=== PATIENT | female | born 1935 | race Caucasian/White ===

== ENCOUNTER 2017-03-26 06:37 | Day surgery (SDC) | payer MEDICARE, OTHER, SELFPAY | END 2017-03-26 07:37 | disposition short-term general hospital (02) | PROVIDERS: PCP Family Medicine; Visit Provider Orthopaedic Surgery ==

== ENCOUNTER 2017-08-13 06:51 | Inpatient (IN) | payer MEDICARE, OTHER, SELFPAY ==
[2017-07-16 10:00] VITALS: BMI 27.4
[2017-08-13] VITALS (16 sets, daily range): BP systolic 122–188; BP diastolic 65–98; PULSE 60–68; RESP 8–18; TEMP 35.7–36.9; O2SAT 93–100; BMI 27.4
--- NOTE | 2017-08-13 | DI.RAD.S_ITS ---
PROCEDURE: XR KNEE LT 1TO2V INDICATIONS: POST OPERATIVE RIGHT KNEE TECHNIQUE: 2 view(s) of the knee acquired. COMPARISON: [facility] CLEMENTE Dunaway, XR KNEE ARTHRITIC SERIES RT, 12/19/2016, 10:54. FINDINGS: Bones: Patient is status post knee joint arthroplasty. Hardware components are in expected positions. Visualized bony structures are intact. Soft tissues: Overlying postoperative changes are noted. IMPRESSION: Acute postoperative changes of total right knee arthroplasty. Dictated by: Bert Raymundo M.D. on 08/13/2017 at 10:41 Approved by: Bert Raymundo M.D. on 08/13/2017 at 10:42
[2017-08-13] MEDS: LACTATED RINGERS 1,000 ML 42 ML IV (07:15)
[2017-08-13] MEDS: VANCOMYCIN 1,000 MG/200 ML FROZ.PIGGY 200 MG IV (07:15)
[2017-08-13] MEDS: ACETAMINOPHEN 325 MG TABLET 975 MG PO (07:31)
[2017-08-13] MEDS: CELECOXIB 200 MG CAPSULE PO (07:31)
--- NOTE | 2017-08-13 07:39 | PM.PREOP ---
Pre-operative Note Interval Note Pre-op Check: History & Physical Reviewed by Physician
--- NOTE | 2017-08-13 07:43 | P.OP_ITS ---
Operative Date/Time/Diagnoses - Date of procedure: 08/13/17 Time of procedure: 07:41 Pre-op diagnosis: Right knee OA Post-op diagnosis: same Procedure & Clinicians Procedure: Right total knee arthroplasty Same procedure as scheduled: Yes Indications: The patient has had progressively worsening right knee pain with radiographic changes consistent with arthritis. Non-operative management has failed and the patient has requested total knee replacement. The risks, benefits and alternatives to surgery were discussed with the patient prior to proceeding. Risks discussed included, but were not limited to, failure to relieve pain, stiffness, infection, nerve damage, deep venous thrombosis, pulmonary embolism, stroke, coma, heart attack, permanent paralysis and , as well as the potential need for eventual revision of the prosthetic. Surgeon: Francie Ramirez Direct Marketing Analyst: Clifford Villarreal Anesthesia Type: Spinal Operative Notes Findings: Severe right knee OA Closure Type: primary Specimen(s): none sent Implants & Drains: Ramirez and Nephew Enrike BCS2 size 4 femur, size 3 tibia, poly 10mmm, 32 by 7-1/2 mm patella Applied: drain(s) Estimated Blood Loss (mL): 200 Blood products transfused: none Tourniquet time (min): 60 Procedure in detail: THE PATIENT WAS SEEN IN THE PRE-OPERATIVE AREA, WHERE THE PATIENT IDENTIFIED THE RIGHT KNEE THE OPERATIVE SITE AND THIS WAS MARKED WITH MY INITIALS. THE PATIENT RECEIVED PRE-OPERATIVE ANTIBIOTICS, AND WAS TAKEN TO THE OPERATING ROOM AND PLACED ON THE OPERATIVE TABLE IN THE SUPINE POSITION. AFTER SATISFACTORY ANESTHESIA, A SITE PROJECT MANAGER OUT WAS PERFORMED. THE RIGHT LEG WAS ENCIRCLED WITH A TOURNIQUET ABOUT THE PROXIMAL THIGH, AND THE LEG WAS PREPARED FROM THE TOES TO THE TOURNIQUET WITH CHLOROPREP IN THE USUAL FASHION AND DRAPED THROUGH STERILE DRAPES. THE LEG WAS ELEVATED AND EXSANGUINATED WITH [employer] BANDAGE AND THE TOURNIQUET INFLATED TO [250] MM[employer] PRESSURE. THE KNEE WAS APPROACHED THROUGH AN APPROXIMATELY 18 CM INCISION CENTERED OVER THE PATELLA AND CARRIED INTO THE KNEE THROUGH A MEDIAL PARAPATELLAR ARTHROTOMY. A PORTION OF THE MEDIAL AND LATERAL MENISCUS WAS RESECTED. SOFT TISSUE WAS CAREFULLY MOBILIZED AROUND THE PATELLA THE PATELLA WAS MEASURED WITH A CALIPER. BONE WAS RESECTED FROM THE PATELLA AND THE PATELLAR HEIGHT WAS RECONSTITUTED WITH UP AN APPROPRIATE SIZED PATELLAR COMPONENT. FOR A COVER WAS THEN PLACED ON THE PATELLA. A SMALL AMOUNT OF ADDITIONAL MEDIAL AND LATERAL MENISCUS WAS RESECTED. THE VISIONARY GUIDE FIT WELL TO THE DISTAL FEMUR. IT LOOKED LIKE AN APPROPRIATE DISTAL FEMORAL CUT AND THE CUT WAS MADE WITHOUT DIFFICULTY. THE ROTATION WAS ASSESSED AND THE APPROPRIATE SIZE FEMORAL GUIDE WAS PLACED ON THE DISTAL FEMUR AND FINISHING CUTS WERE MADE. THERE IS NO EVIDENCE OF NOTCHING. THE ANTERIOR, POSTERIOR AND CHAMFER CUTS WERE THEN MADE. THE POSTERIOR OSTEOPHYTES AND SOFT TISSUES WERE THEN REMOVED. THE POSTERIOR CAPSULE WAS INJECTED WITH PART OF A MIXTURE OF 60 ML 0.25% MARCAINE MIXED WITH 20 ML EXPAREL FOR POST OPERATIVE PAIN CONTROL. THE REMAINDER OF THIS MIXTURE WAS INJECTED INTO THE CAPSULE AND SUBCUTANEOUS TISSUES DURING CEMENT CURING. THE TIBIA WAS PREPARED AND THE VISIONAIRE GUIDE FIT WELL TO THE DISTAL TIBIA. THE ROTATION WAS ASSESSED. THE PATIENT WAS PLACED IN EXTENSION RESIDUAL MEDIAL AND LATERAL MENISCUS WELL ANY RESIDUAL BONE WAS CAREFULLY RESECTED. NO ADDITIONAL TIBIA WAS RESECTED. HEMOSTASIS WAS ACHIEVED ESPECIALLY POSTERIORLY. ADDITIONAL LOCAL WAS INJECTED INTO THE POSTERIOR CAPSULE. THE EXTENSION GAP WAS ASSESSED AND ADDITIONAL RELEASES FOR GAP BALANCING WERE PERFORMED NECESSARY. IT WAS CHECKED WITH THE GAP FORGE HAND. THE FEMORAL COMPONENT WAS TRIAL WAS PLACED AND THE NOTCH WAS FINISHED. TRIAL TIBIAL AND FEMORAL COMPONENTS WERE THEN PLACED AND THE KNEE PLACED THROUGH A RANGE OF MOTION. RANGE OF MOTION WAS [ 0-130], WITH GOOD STABILITY THROUGHOUT THE RANGE. THE TRIALS WERE THEN REMOVED, AND THE TIBIA WAS FINISHED. THE BONE WAS PREPARED WITH PULSATILE LAVAGE, AND DRIED WITH A SPONGE. CEMENT WAS APPLIED AND THE FINAL PROSTHETICS PLACED. EXCESS CEMENT WAS REMOVED DURING AND AFTER CEMENT CURING. A BRIEF BETADINE SOAK WAS PERFORMED. AFTER CONFIRMING THERE WAS NO EXTRUDED CEMENT POSTERIORLY, THE FINAL TIBIAL INSERT WAS PLACED. THE KNEE WAS COPIOUSLY IRRIGATED AND THE TOURNIQUET DEFLATED. HEMOSTASIS WAS OBTAINED WITH THE BOVIE. A DRAIN WAS PLACED AND BROUGHT OUT SUPEROLATERALLY. THE CAPSULE WAS CLOSED WITH INTERRUPTED # 1 BLACK BRAIDED SUTURE. THE SUBCUTANEOUS LAYER WAS CLOSED WITH BARBED SUTURES, AND THE SKIN WITH A RUNNING 3-0 V-LOCK SUTURE AND SURGICAL GLUE. AN AQUACEL AG DRESSING WAS APPLIED AND THE PATIENT WAS TAKEN TO RECOVERY HAVING TOLERATED THE PROCEDURE WELL. Complications: none Condition: stable Disposition: Acute Care Plan for aftercare: The patient will be maintained on a standard total knee replacement protocol with weight bearing as tolerated. The patient will receive aspirin and sequential compression devices for DVT prophylaxis. The patient will be discharged home when safe for the home environment.
[2017-08-13] MEDS: CEFAZOLIN 2 GM/100 ML FROZ.PIGGY IV ×3 (08:10→23:53)
--- NOTE | 2017-08-13 08:58 | SUR.OPER ---
Supine on padded OR bed. Pillow under head, arms secured on padded armboards <90 degree abduction. Safety belt across torso. Non-operative leg secured with tape over blanket over lower leg. Operative leg secured in [employer] positioner. Foam padded brace at thigh of operative leg.
[2017-08-13] MEDS: BUPIVACAINE 0.25% W/ EPI 50 ML VIAL INJ (09:05)
[2017-08-13] MEDS: BUPIVACAINE LIPOSOME 266 MG/20 ML VIAL SUBCUT (09:05)
[2017-08-13] MEDS: POVIDONE-IODINE 15 ML, SODIUM CHLORIDE 0.9% 250 ML TOP (09:10)
--- NOTE | 2017-08-13 09:27 | SUR.OPER ---
Dressing: aquacel and joy bandage right knee
[2017-08-13] MEDS: HYDROMORPHONE 2 MG INJ 0.5 MG IV ×2 (10:20→10:26)
--- NOTE | 2017-08-13 11:19 | PC.NURSE ---
Pt was ghazala to the AC floor at approx. 1100. She is A & O x 3. Dressing to right knee is CDI and ice pack has been applied. She rates her pain s 4/10 which is tollerable for her. She has been oriented to the room. Call ligtht is within reach and pt has agreed to use it as needed.
[2017-08-13] MEDS: LACTATED RINGERS 1,000 ML 125 ML IV ×2 (11:30→19:42)
--- NOTE | 2017-08-13 13:47 | PC.NURSE ---
Pt has been up OOB with nursing staff and use of FWW, transfered to bedside chair at 1345.
[2017-08-13] MEDS: ACETAMINOPHEN 325 MG TABLET 650 MG PO ×3 (14:29→23:52)
--- NOTE | 2017-08-13 15:20 | PT.IIE ---
Current Diagnoses Unilateral primary osteoarthritis, right knee (08/13/17) Surgery Performed Operation Date: 08/13/17 07:45 Actual Procedures p Total Knee Arthroplasty(Right) - Francie Ramirez MD Surgical History (Last Updated 07/16/17 @ 10:29 by Zoie Preciado, RN) History of arthroplasty of left knee (Acute) Hx of hernia repair (Acute) Hx of parathyroidectomy (Acute) Hx of tonsillectomy (Acute) Status post LASIK surgery of both eyes (Acute) Status post bilateral cataract extraction (Acute) Medical History (Last Updated 07/31/17 @ 09:41 by Zoie Preciado, RN) Anemia (Acute) Chronic kidney disease (Acute) Glaucoma (Acute) HTN (hypertension) (Acute) History of hysterectomy (Acute) Hyperlipidemia (Acute) Hyperuricemia (Acute) Nocturia (Acute) Pacemaker (Acute) Paroxysmal A-fib (Acute) Physical Therapy Inpatient Evaluation/Re-Eval M1 PT/OT-IP Prior Functional Status Start: 08/13/17 16:52 Freq: NEEDED Status: Active Protocol: Document 08/13/17 16:52 AB (Rec: 08/13/17 16:59 AB [id number]) Medical Review Prior Functional Status Medical History Reviewed Yes Mobility and Gait pt stated that she is independent with all mobilities and ambulation without AD Prior Functional Level (Other details) 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 M2 PT-IP Current Condition Start: 08/13/17 16:52 Freq: NEEDED Status: Active Protocol: Document 08/13/17 16:52 AB (Rec: 08/13/17 16:59 AB [id number]) Physical Therapy Current Condition Current Condition Evaluation Date 08/13/17 Treatment Diagnosis s/p R TKA Onset Date 08/13/17 Weight Bearing Status Weight Bearing Status Weight Bear as Tolerated M3 PT-IP Subjective Start: 08/13/17 16:52 Freq: NEEDED Status: Active Protocol: Document 08/13/17 16:52 AB (Rec: 08/13/17 16:59 AB [id number]) Subjective Physical Therapy Visit Type Type Initial Evaluation Visit Start Time 15:20 Visit Stop Time 15:46 Total Visit Minutes 26 Number of CRITICAL CARE CNS Visits 0 Physical Therapy Visit Comments Patient Comments pt agreeable to do therapy Therapy Pain Assessment Pain When Pain Assessed During Mobility Pain Present Pain Present Pain Reported Location Right Knee Intensity 4 Scale Used Numeric (1 - 10) Pain Management Techniques Apply Cold Re-positioning M4 PT-IP Mobility and Gait Start: 08/13/17 16:52 Freq: NEEDED Status: Active Protocol: Document 08/13/17 16:52 AB (Rec: 08/13/17 16:59 AB [id number]) PT-Bed Mobility Assessment Supine to Sit Supine to Sit Standby Assistance Sit to Supine Sit to Supine Standby Assistance PT-Transfer Assessment Sit to and From Stand Sit to and from Stand Minimal Assistance Equipment Transfer Assistive Device Bed Rail Front Wheeled Walker Transfers Transfer Destination Bedside Commode Transfer Ability Level of Assist Minimal Assistance Gait Assessment Gait Gait Assistance Required: Contact Guard Assist Minimum Assistance Distance (Feet) (feet) 30 Able to Maintain Weight Bearing Status Yes During Gait Assistive Devices Assistive Device Gait Belt Front Wheeled Walker Orthotic/Prosthetic Devices or Brace: No Gait Deviations General Gait Pattern Antalgic Decreased Stride Length Decreased Feet Clearance Factors Limiting Gait Function Factors Limiting Gait Function Decreased Activity Tolerance Decreased Strength Limited Range of Motion Pain Poor Balance Poor Safety Awareness PT-Balance Assessment Sitting Balance and Reactions Static Sitting Balance Ability Good Dynamic Sitting Balance Ability Good Standing Balance and Reactions Static Standing Balance Ability Fair Dynamic Standing Balance Ability Fair Device Used FWW M5 PT-IP Objective Assessments Start: 08/13/17 16:52 Freq: NEEDED Status: Active Protocol: Document 08/13/17 16:52 AB (Rec: 08/13/17 16:59 AB [id number]) Orientation Orientation/Cognition Level of Alertness Alert Orientation Name Age Birthday Year Place Situation Gross Range of Motion Lower Extremity ROM Assessment Right Impaired Strength Lower Extremity Strength Assessment Right Impaired Hip 4-/5 Knee 4-/5 M6 PT-IP Treatment Start: 08/13/17 16:52 Freq: NEEDED Status: Active Protocol: Document 08/13/17 16:52 AB (Rec: 08/13/17 16:59 AB [id number]) Physical Therapy Treatment Education Education Provided Precautions Weight Bearing Status Post-Op Packet Safety M7 PT-IP Assessment and Plan Start: 08/13/17 16:52 Freq: NEEDED Status: Active Protocol: Document 08/13/17 16:52 AB (Rec: 08/13/17 16:59 AB [id number]) PT Summary Assessment and Plan Potential Rehabilitation Potential Fair Status of Condition at Evaluation Evolving Summary Impairments Pain ROM Strength Balance Bed Mobility Transfers Gait Activity Tolerance Assessment Summary pt requiring one person assist with mobility. pt has spouse to assist her at home. caregiver traiing and stair training will be conducted prior to d/c. Goals Bed Mobility Goal Independent Transfer Goal Independent Gait Goal Independent Gait Distance 100 Other Goals up/down 3 steps with bilateral rails SBA Days to Meet Goals 3 Frequency of Treatment Frequency Of Treatment Twice a Day Treatment Plan Physical Therapy Treatment Plan Bed Mobility Training Transfer Training Gait Training Therapeutic Exercise Balance Retraining Post Op Education Discharge Planning Hot or Cold Pack Neuromuscular Re-ed Coordination Retraining Manual Therapy Recommendations To Nursing Amount of Assist Needed 1 Person Assist Discharge Recommendations PT Discharge Recommendations Home with Assistance Outpatient PT Provider Visit Care Team Role Provider Type Rojelio Adames MD Primary Care Provider Non-Staff Specialty: Medical Francie Ramirez MD Admit Provider Physician Attending Provider Specialty: Orthopedic Surgery
[2017-08-13] MEDS: BRIMONIDINE/TIMOLOL 0.2%/0.5% OPHTH 5 ML 1 DROPS EYE-BOTH (19:42)
[2017-08-13] MEDS: SENNOSIDES 8.6 MG TABLET 17.2 MG PO (20:03)
[2017-08-13] MEDS: LISINOPRIL 20 MG TABLET 40 MG PO (20:04)
[2017-08-13] MEDS: ASPIRIN EC 81 MG TABLET PO (20:04)
[2017-08-13] MEDS: DOCUSATE 100 MG CAPSULE PO (20:05)
[2017-08-13] MEDS: SIMVASTATIN 20 MG TABLET PO (20:05)
[2017-08-13] MEDS: BRINZOLAMIDE OPHTH 10 ML 1 DROPS EYE-BOTH (20:57)
[2017-08-13] MEDS: BIMATOPROST 0.01% OPHTH 2.5 ML 1 DROPS EYE-BOTH (22:22)
[2017-08-14] MEDS: OXYCODONE/ACETAMINOPHEN 5/325 TABLET 1 TAB PO (03:55)
[2017-08-14 06:00] LABS: Hematocrit 30.4 % (36-46); Hemoglobin 10.4 g/dL (12.0-16.0)
[2017-08-14 06:06] VITALS: BP 131/70; PULSE 70; RESP 18; TEMP 36.4; O2SAT 100
[2017-08-14] MEDS: BRIMONIDINE/TIMOLOL 0.2%/0.5% OPHTH 5 ML 1 DROPS EYE-BOTH (07:04)
[2017-08-14] MEDS: ACETAMINOPHEN 325 MG TABLET 650 MG PO (07:05)
[2017-08-14 08:00] VITALS: BP 130/74; PULSE 60; RESP 16; TEMP 36.4; O2SAT 98
[2017-08-14 09:40] VITALS: BP 130/74; PULSE 74
[2017-08-14] MEDS: LISINOPRIL 20 MG TABLET 40 MG PO (09:40)
[2017-08-14] MEDS: DOCUSATE 100 MG CAPSULE PO (09:41)
[2017-08-14] MEDS: ALLOPURINOL 100 MG TABLET 200 MG PO (09:41)
[2017-08-14] MEDS: BRINZOLAMIDE OPHTH 10 ML 1 DROPS EYE-BOTH (09:41)
[2017-08-14] MEDS: ASPIRIN EC 81 MG TABLET PO (09:41)
[2017-08-14] MEDS: FUROSEMIDE 20 MG TABLET PO (09:41)
--- NOTE | 2017-08-14 10:03 | PT.IPTN ---
Current Diagnoses Unilateral primary osteoarthritis, right knee (08/13/17) Surgery Performed Operation Date: 08/13/17 07:45 Actual Procedures p Total Knee Arthroplasty(Right) - Francie Ramirez MD Physical Therapy Treatment Note M2 PT-IP Current Condition Start: 08/13/17 16:52 Freq: NEEDED Status: Active Protocol: Document 08/13/17 16:52 AB (Rec: 08/13/17 16:59 AB [id number]) Physical Therapy Current Condition Current Condition Evaluation Date 08/13/17 Treatment Diagnosis s/p R TKA Onset Date 08/13/17 Weight Bearing Status Weight Bearing Status Weight Bear as Tolerated M3 PT-IP Subjective Start: 08/13/17 16:52 Freq: NEEDED Status: Active Protocol: Document 08/14/17 10:03 DLM (Rec: 08/14/17 11:22 DL [id number]) Subjective Physical Therapy Visit Type Type Treatment Note Visit Start Time 09:15 Visit Stop Time 10:03 Total Visit Minutes 48 Number of DYSLEXIA TEACHER Visits 0 Physical Therapy Visit Comments Patient Comments She wants to go home today She has questions about HEP, home icing, sleeping positions and car transfers Therapy Pain Assessment Pain When Pain Assessed During Mobility Pain Present Pain Present Pain Reported Location Right Knee Intensity 3 Scale Used Numeric (1 - 10) Description Aching Pain Behaviors Wincing Pain Management Techniques Apply Cold Timing of Activity with Medications M4 PT-IP Mobility and Gait Start: 08/13/17 16:52 Freq: NEEDED Status: Active Protocol: Document 08/14/17 10:03 DLM (Rec: 08/14/17 11:22 DL [id number]) PT-Bed Mobility Assessment Sit to Supine Sit to Supine Independent Scooting Scooting to Edge of Bed Independent Scooting Up and Down in Bed Independent PT-Transfer Assessment Sit to and From Stand Sit to and from Stand Independent Equipment Transfer Assistive Device Gait Belt Front Wheeled Walker Transfers Transfer Destination Chair Transfer Technique Stand Step Pivot Transfer Ability Level of Assist Standby Assistance Comments Mobility Comments reminders to keep FWW close throught transfer Gait Assessment Gait Gait Assistance Required: Independent Distance (Feet) (feet) 90 Able to Maintain Weight Bearing Status Yes During Gait Assistive Devices Assistive Device Gait Belt Front Wheeled Walker Gait Deviations General Gait Pattern Antalgic Flexed Trunk Factors Limiting Gait Function Factors Limiting Gait Function Decreased Activity Tolerance Decreased Strength Limited Range of Motion Pain Comments Gait Comments no losses of balance during gait, safe use of FWW Stair Climbing Assessment Evaluation Level of Assist On Stairs Standby Assistance Devices Stair Climbing Assistive Devices Left Railing Right Railing Technique/Endurance Stair Climbing Direction Ascend and Descend Stair Climbing Technique Step to Step Number of Steps Climbed 3 Query Text: Stair Climbing Set # Repetitions (reps) 1 Comments Stair Climbing Comments safe technique on stairs, education provided for safe stair technique post-op PT-Balance Assessment Sitting Balance and Reactions Static Sitting Balance Ability Normal Dynamic Sitting Balance Ability Normal Standing Balance and Reactions Static Standing Balance Ability Good Dynamic Standing Balance Ability Good Device Used with fWW M5 PT-IP Objective Assessments Start: 08/13/17 16:52 Freq: NEEDED Status: Active Protocol: Document 08/13/17 16:52 AB (Rec: 08/13/17 16:59 AB [id number]) Orientation Orientation/Cognition Level of Alertness Alert Orientation Name Age Birthday Year Place Situation Gross Range of Motion Lower Extremity ROM Assessment Right Impaired Strength Lower Extremity Strength Assessment Right Impaired Hip 4-/5 Knee 4-/5 M6 PT-IP Treatment Start: 08/13/17 16:52 Freq: NEEDED Status: Active Protocol: Document 08/14/17 10:03 DLM (Rec: 08/14/17 11:22 DL [id number]) Physical Therapy Treatment Exercises Exercises Ankle Pumps Gluteal Sets Quad Sets Heel Slides Straight Leg Raises Short Arc Quads Passive Knee Extension Hang Seated Knee Flexion/Extension Knee ROM Measurement 0-91 Education Education Provided Weight Bearing Status Post-Op Packet Safety Equipment Issued Equipment Type and Company none M7 PT-IP Assessment and Plan Start: 08/13/17 16:52 Freq: NEEDED Status: Active Protocol: Document 08/14/17 10:03 DLM (Rec: 08/14/17 11:22 [facility] [id number]) PT Summary Assessment and Plan Summary Impairments Pain ROM Strength Transfers Activity Tolerance Progress Towards Goals Progressing Toward Goals Safe For Discharge Assessment Summary She is progressing well today. She demonstrates safe gait pattern and tolerated stair training well. She has a fWW for home use. She reports out- pt PT is set up. Answered pt's questions to prepare her for discharge home today. She appears to be safe to discharge home with assistance today. Frequency of Treatment Frequency Of Treatment Twice a Day Treatment Plan Physical Therapy Treatment Plan Transfer Training Gait Training Therapeutic Exercise Post Op Education Discharge Planning Hot or Cold Pack Other Recommendations and Next Treatment TKA exercises, increase Focus distance of gait as tolerated Recommendations To Nursing Amount of Assist Needed Standby Assistance Discharge Recommendations PT Discharge Recommendations Home with Assistance Outpatient PT
--- NOTE | 2017-08-14 10:16 | PM.DS.1 ---
History of Present Illness Date Patient Seen: 08/14/17 Time Patient Seen: 10:16 Chief complaint: [id number] Narrative: Patient is an 82-year-old female with history of right knee osteoarthritis. She has failed conservative treatment and elected to proceed with the right total knee replacement by Dr. Ramirez. Discharge Providers Date of admission: 08/13/17 06:51 Primary care physician: Rojelio Adames MD Consults: 08/13/17 11:01 Consult to Discharge Planning Routine Comment: Consult to Physical Therapy Evaluate & Treat Comment: Physician Instructions: postop TKA protocol Consult to Respiratory Therapy Evaluate & Treat Comment: Physician Instructions: Evaluate and treat Discharge provider: Sandra Majano PA-C Summary Discharge Diagnosis: Right knee osteoarthritis Hospital Course: Patient was admitted and taken to the operating room where she had a right total knee replacement by Dr. Ramirez. She recovered well and was transferred to the floor for further care. Postop day 1 patient's pain was under control, she was ambulating well, eating and drinking well, able to urinate without any difficulty. She was ready to be discharged home. Status at Discharge Cognitive/behavioral status at discharge: Patient alert and orient x3. Functional status at discharge: uses cane/walker Overall status at discharge: patient is progressing back to baseline Time Spent with Patient Less than 30 minutes Exam Vital Signs (past 8 hours): Vital Signs - 8 hr 08/14/17 06:06 08/14/17 08:00 08/14/17 09:40 Temperature 97.6 F 97.5 F L Pulse Rate 70 60 74 Respiratory Rate 18 16 Blood Pressure 131/70 H 130/74 H 130/74 H Pulse Oximetry 100 98 Pulse Oximetry 98 Oxygen Delivery Method Room Air Oxygen Flow Rate 0 Narrative Exam Narrative: Patient is sitting in chair. Appears comfortable. Right knee dressing clean dry intact. Minimal swelling in right knee. Bilateral calf soft and nontender. 5/5 right ankle strength. Neurovascular status intact. Alert and orient x3. Objective Labs Result Diagrams: 08/14/17 05:27 Labs: Laboratory Results - last 24 hr 08/14/17 05:27 Hgb 10.4 L Hct 30.4 L Discharge Plan Discharge Plan Patient Disposition: Home, Self-Care Discharge comment: Take aspirin 81 mg twice a day for total 6 weeks then return to normal dose of aspirin once a day. The patient has prescription for oxycodone 5 mg prn pain at home. Discharge Med Rec/Prescriptions Prescriptions: New acetaminophen 325 mg Tablet 650 mg PO Q6HR MDD 4000mg Qty: 60 RF: 0 aspirin 81 mg Tablet,Delayed Release (Dr/Ec) 81 mg PO BID Qty: 0 RF: 0 Discontinued aspirin 81 MG tablet,delayed release (DR/EC) 81 mg PO QDAY Qty: 0 RF: 0 No Action allopurinol 100 MG tablet 200 mg PO QAM Qty: 0 RF: 0 lisinopril 20 MG tablet 20 mg PO QAM Qty: 0 RF: 0 brimonidine-timolol [Combigan] 0.2 %/0.5 % drops 1 drp OPHTH BID Qty: 0 RF: 0 brinzolamide [Azopt] 1 % Drops,Suspension 1 drp EYE-BOTH TID RF: 0 furosemide 20 mg Tablet 20 mg PO QAM RF: 0 bimatoprost [Lumigan] 0.01 % Drops 1 drp ophthalmic (eye) BEDTIME RF: 0 simvastatin 20 mg Tablet 20 mg PO BEDTIME RF: 0 Follow up/Referrals: Francie Ramirez MD [Physician] - (Follow-up on 08/20/2017 at 10:30 a.m. at [facility]. Any issues or concerns contact the office.) Provider Discharge Instructions Diet: Diet as Tolerated Activity: Continue knee range of motion exercises and start physical therapy next week. Cold/Heat Therapy: Apply a ice as needed on the right knee of for pain and swelling. Wound Care Report to your healthcare provider any signs of infection, such as:: chills, fever, increased pain and unusual drainage Dressing: Leave dressing intact. May shower. Visit Report/Discharge Packet Instructions: DI for Knee Replacement Discharge Data Primary Care Provider: Rojelio Adames Attending Provider: Francie Ramirez Admit Date/Time: 08/13/17 06:51 Quality VTE Deep Vein Thrombosis/Pulmonary Embolism Present on Admission: No
--- NOTE | 2017-08-14 12:03 | PC.NURSE ---
Pt ready for discharge home and Spouse is present to drive her home. Went over d/c instructions regarding meds and last dose, again reviewed Acetaminophen precautions to prevent exceeding 4000mg in 24 hours, showering, leaving dressing intact until follow up and follow up appointment. Pt and Spouse denied further questions and will discharged out when lunch is finished.
== END 2017-08-14 12:41 | disposition home or self-care (01) | DRG 470 ==
PROVIDERS: Admitting Provider Orthopaedic Surgery; PCP Family Medicine; Visit Provider Orthopaedic Surgery
PROC: 0SRC0JZ Replacement of Right Knee Joint with Synthetic Substitute, Open Approach (ICD-10-PCS; CPT 27447; principal; 2017-08-13 07:45)
DX: M17.11 Unilateral primary osteoarthritis, right knee (principal); I12.9 Hypertensive chronic kidney disease with stage 1 through stage 4 chronic kidney disease, or unspecified chronic kidney disease; N18.3 Chronic kidney disease, stage 3 (moderate); M10.9 Gout, unspecified; E78.5 Hyperlipidemia, unspecified; Z95.0 Presence of cardiac pacemaker
CPT/HCPCS: 36415; 73560; 85014; 85018; 97162; C1776; C9290; J0690; J1100; J1170; J2250; J2405; J2704; J3370

== ENCOUNTER → 2021-12-12 09:07 | Outpatient (CLI) | payer MEDICARE, OTHER, SELFPAY ==
[2017-08-13 07:07] VITALS: BMI 27.4
[2021-12-12 11:55] LABS: COVID19 -Nasal RAPID Negative (Negative)
--- NOTE | 2021-12-13 10:32 | DI.NM.S_ITS ---
DATE OF SERVICE: 12/12/2021 PROCEDURE: Pharmacological perfusion study. INDICATION: Atrial fibrillation, underlying sick sinus syndrome. RADIOPHARMACEUTICAL: 24.9 millicurie technetium-99m Myoview IV was injected at stress and 12.1 millicurie technetium-99m Myoview IV was injected at rest. CARDIAC STRESS: The patient underwent IV Lexiscan perfusion study under the supervision of an attending staff, as per standard protocol. She remained hemodynamically stable. Baseline blood pressure 130/80. Baseline rhythm, ventricular paced rhythm. During stress, no new convincing ischemic changes or significant arrhythmias seen. No chest discomfort. Had minimal dyspnea. RAW DATA: There is increased subdiaphragmatic activity. Liver position is higher at the level of heart. Appears to be a prominent spleen. Increased gut activity seen, as well. The stress LV ejection fraction 92 percent and resting LV ejection fraction 89 percent. Hyperdynamic LV. No obvious wall motion abnormalities. Resting end-diastolic volume 85 mL. TID ratio 0.91, which is within normal limits. Lung/heart ratio 0.23, which is within normal limits. MYOCARDIAL PERFUSION SCAN: Please note that this patient does not have any stress prone images. Stress supine and resting supine images were compared to each other. Stress supine images revealed very small minimally decreased perfusion of distal anterior wall and mildly decreased perfusion of basal inferolateral wall. Resting supine images revealed minimally decreased perfusion of distal anterior wall, as well as mildly decreased perfusion of basal inferolateral wall and distal inferior wall. Summed stress score 1 and summed rest score 4. No obvious reversible ischemia. CONCLUSION: 1. There is a perfusion defect, as stated above, worse in resting study than the stress supine study. No prone images. Summed stress score 1 and summed rest score 4. There is significantly increased subdiaphragmatic activity, as well as gut activity. The patient also has pacemaker. Left ventricular function is hyperdynamic without any wall motion abnormalities. Hence, likely those defects due to tissue attenuation artifact. No convincing ischemic or infarction pattern seen. Probably normal myocardial perfusion study and low- risk study. 2. There is a prominent spleen. Consider ultrasound abdomen to rule out splenomegaly. MoraAlexus bargerara - Malcolm/keenan doc#: [id number]/job#: [id number] dd: 12/12/2021 17:08:00 dt: 12/12/2021 20:40:00 DICTATING MD/COPIES TO: Karlo Ferrer MD COPIES MNE: LESLIE;
== END ==
PROVIDERS: PCP Nurse Practitioner; Referring Provider Internal Medicine Cardiovascular Disease; Visit Provider Internal Medicine Cardiovascular Disease
DX: I48.0 Paroxysmal atrial fibrillation (principal); I49.5 Sick sinus syndrome; R68.84 Jaw pain; Z20.822 Contact with and (suspected) exposure to COVID-19; Z95.0 Presence of cardiac pacemaker
CPT/HCPCS: 78452; 87635; 93017; A9502; J2785

== ENCOUNTER 2024-09-30 07:41 | Day surgery (SDC) | payer MEDICARE, OTHER, SELFPAY ==
[2017-08-13 07:07] VITALS: BMI 27.4
[2024-09-30 08:06] VITALS: BP 142/97; PULSE 121; RESP 18; TEMP 36.2; O2SAT 99
--- NOTE | 2024-09-30 09:02 | SUR.PREOP ---
Pt arrives SOB with exertion, tachy @ 121HR and in Afib. EKG performed. [facility] [employer] [facility] cancelled case and transferred pt to ED for eval and treatment.
== END 2024-09-30 07:45 | disposition home or self-care (01) ==
PROVIDERS: PCP Nurse Practitioner; Referring Provider Nurse Practitioner; Visit Provider Surgery
DX: Z53.9 Procedure and treatment not carried out, unspecified reason (principal); R06.02 Shortness of breath; R00.0 Tachycardia, unspecified

== ENCOUNTER 2024-09-30 08:46 | Emergency (ER) | payer MEDICARE, OTHER, SELFPAY ==
[2017-08-13 07:07] VITALS: BMI 27.4
[2024-09-30] VITALS (19 sets, daily range): BP systolic 125–146; BP diastolic 63–87; PULSE 83–123; RESP 15–24; TEMP 36.6; O2SAT 91–96; BMI 20.7
--- NOTE | 2024-09-30 08:16 | EKG_ITS ---
[address] [address] Test Date: 2024-09-30 Pat Name: So Mcmillan Department: Room: Gender: Female Scalloper: Eveline RICO : 1935 Requested By: Order Number: [id number] Reading MD: Heraclio Forte Measurements Intervals [place] Rate: 112 P: [place]: QRS: -50 QRSD: 272 T: 88 QT: 472 QTc: 644 Interpretive Statements Critical Test Result: Arrhythmia Undetermined rhythm Left axis deviation Right bundle branch block Tachycardia. Electronically Signed On 10-01-2024 9:44:56 PDT by Heraclio Forte
--- NOTE | 2024-09-30 09:00 | ED.CHESTPAIN ---
HPI - Chest Pain General Chief Complaint: Arrhythmia/Palpitations Stated Complaint: Tachy, Pacemaker Time Seen by Provider: 09/30/24 08:52 History of Present Illness HPI narrative: 89-year-old female history of atrial fibrillation on Eliquis had appointment today for outpatient colonoscopy endoscopy due to underlying anemia with no known source found to be tachycardic sent over here for further evaluation. Patient denies has pain cough, sore throat, fever, chills, bodyaches, urinary complaints, lightheadedness, dizziness, shortness of breath, leg pain, leg swelling, nausea, vomiting, diarrhea, bloody stools, or coffee-ground emesis. Other than what is stated 14 point review of system is negative. Related Data Home Medications ?Medication ?Instructions ?Recorded ?Confirmed brimonidine 0.2 %-timolol 0.5 % 1 drp OPHTH BID ##0 03/17/17 08/13/17 eye drops (Combigan) lisinopril 20 mg tablet 20 mg PO QAM ##0 03/17/17 08/13/17 furosemide 20 mg tablet 20 mg PO QAM 07/16/17 08/13/17 alendronate 70 mg tablet 70 mg PO 09/09/24 09/09/24 apixaban 5 mg tablet (Eliquis) 5 mg PO BID 09/09/24 09/09/24 diltiazem HCl 180 mg capsule,24 mg PO 09/09/24 09/09/24 hr,extended release Previous Rx's ?Medication ?Instructions ?Recorded sodium,potassium,mag sulfates 17.5 See Rx Instructions PO .COMPLEX 09/12/24 gram-3.13 gram-1.6 gram oral soln #354 mL (Suprep Bowel Prep Kit) Allergies Allergy/AdvReac Type Severity Reaction Status Date / Time amoxicillin (AMOXICILLIN) Allergy Intermediate RASH Verified 09/30/24 09:07 clindamycin (CLINDAMYCIN) Allergy Intermediate RASH Verified 09/30/24 09:07 Review of Systems Review of Systems ROS Unobtainable: All systems reviewed & are unremarkable except as noted in HPI and below Patient History Medical History (Updated 09/30/24 @ 12:10 by Bry Arthur, DO) Paroxysmal A-fib Hyperuricemia Anemia Chronic kidney disease Nocturia Hyperlipidemia HTN (hypertension) Glaucoma Pacemaker Surgical History History of arthroplasty of left knee Hx of tonsillectomy Hx of parathyroidectomy History of hysterectomy Hx of hernia repair Status post LASIK surgery of both eyes Status post bilateral cataract extraction Social History household members: spouse Smoking Status: Former smoker alcohol intake: current alcohol intake frequency: a few times a month Exam Narrative Exam Narrative: GENERAL: [89] year old patient appears stated age. Well-developed patient, in mild distress. HEAD: Atraumatic. Normocephalic. EYES: Pupils equal round and reactive. Extraocular motions intact. No scleral icterus. No injection or drainage. ENT: Nose without bleeding, purulent drainage. Throat without erythema, tonsillar hypertrophy or exudate. Airway patent. NECK: Trachea midline. Non tender CARDIOVASCULAR: Tachy irregular rate and rhythm without murmurs, gallops, or rubs. RESPIRATORY: Clear to auscultation. Breath sounds equal bilaterally. No wheezes, rales, or rhonchi. GASTROINTESTINAL: Abdomen soft, non-tender, nondistended. EXTREMITIES: No edema or joint tenderness. BACK: Nontender without deformity or crepitance. No flank tenderness. NEURO: AOx3. SKIN: No rash or erythema of visible areas Initial Vital Signs Initial Vital Signs: Vital Signs Temperature 97.8 F 09/30/24 08:52 Pulse Rate 119 H 09/30/24 08:52 Respiratory Rate 17 09/30/24 08:52 Blood Pressure 128/82 09/30/24 08:52 Pulse Oximetry 96 09/30/24 08:52 Oxygen Delivery Method Room Air 09/30/24 08:52 Scores HEART Score Heart Score history: Moderately Suspicious Heart Score EKG: Non-Specific repolarization disturbance Heart Score Age: > or = 65 years old Heart Score risk factors: 1-2 risk factors Heart Score troponin: < or = to normal limit Heart Score Total: 5 Course Orders Ordered: ED Orders 09/30/24 08:15 EKG-12 Lead Stat 09/30/24 09:00 Complete Blood Count AUTO DIFF Stat Comprehensive Metabolic Panel Stat Lipase Stat Magnesium Stat NT-proBNP (BNP-Adult 18+) Stat PTT Partial Thromboplastin Gerard Stat Prothrombin Time INR Stat Troponin & CK Cardiac Panel Stat 09/30/24 09:06 XR chest 1V Stat EKG-12 Lead Stat 09/30/24 11:42 Troponin I Stat Discontinued Medications Aspirin (Aspirin 81 Mg Chew Tab) 324 mg PO NOW ONE Stop: 09/30/24 09:07 Last Admin: 09/30/24 11:34 Dose: 324 mg Documented By: ROHIT Metoprolol Tartrate (Metoprolol Tartrate 5 Mg/5 Ml Inj) 5 mg IV NOW ONE Stop: 09/30/24 10:53 Last Admin: 09/30/24 11:34 Dose: 5 mg Documented By: ROHIT Vital Signs Vital signs: Vital Signs - 8 hr 09/30/24 08:52 09/30/24 08:57 09/30/24 09:00 Temperature 97.8 F Pulse Rate 119 H 117 H 108 H Respiratory Rate 17 17 18 Blood Pressure 128/82 Pulse Oximetry 96 94 94 Oxygen Delivery Method Room Air 09/30/24 09:30 09/30/24 10:00 09/30/24 10:37 Temperature Pulse Rate 115 H 101 H 119 H Respiratory Rate 16 15 20 Blood Pressure Pulse Oximetry 93 96 Oxygen Delivery Method 09/30/24 10:38 09/30/24 10:38 09/30/24 11:00 Temperature Pulse Rate 123 H Respiratory Rate 18 Blood Pressure 133/87 135/77 Pulse Oximetry 95 Oxygen Delivery Method 09/30/24 11:00 09/30/24 11:30 09/30/24 11:30 Temperature Pulse Rate 97 H 98 H Respiratory Rate 15 21 Blood Pressure 135/80 Pulse Oximetry 95 94 Oxygen Delivery Method 09/30/24 11:39 09/30/24 11:39 09/30/24 11:40 Temperature Pulse Rate 103 H Respiratory Rate 18 Blood Pressure 125/77 146/65 H Pulse Oximetry 94 Oxygen Delivery Method 09/30/24 11:40 09/30/24 11:54 09/30/24 11:54 Temperature Pulse Rate 103 H 95 H Respiratory Rate 19 23 Blood Pressure 146/81 H Pulse Oximetry 91 Oxygen Delivery Method 09/30/24 11:55 09/30/24 11:55 09/30/24 12:00 Temperature Pulse Rate 92 H Respiratory Rate 19 Blood Pressure 140/75 133/63 Pulse Oximetry 93 Oxygen Delivery Method 09/30/24 12:00 09/30/24 12:05 09/30/24 12:05 Temperature Pulse Rate 83 91 H Respiratory Rate 21 24 Blood Pressure 141/77 H Pulse Oximetry 94 94 Oxygen Delivery Method MDM - Chest Pain Lab Data 09/30/24 09:00 09/30/24 09:00 Labs: Lab Results 09/30/24 09/30/24 Range/Units 09:00 11:42 WBC 3.2 L (4.5-11.0) X10^3/uL RBC 3.41 L (4.0-5.2) X10^6/uL Hgb 10.2 L (12.0-16.0) g/dL Hct 31.9 L (36-46) % MCV 93.4 (80-100) fL MCH 29.9 (26-34) PG MCHC 32.0 (30-36) % RDW 16.7 H (11.6-14.8) % Plt Count 119 L (150-400) X10^3/uL Neut % (Auto) 80.1 H (50-75) % Lymph % (Auto) 11.4 L (25-40) % Christian % (Auto) 6.8 (3-14) % Eos % (Auto) 1.1 L (2-4) % Baso % (Auto) 0.6 (0-2) % Neut # (Auto) 2600 (0576-4787) /uL Lymph # (Auto) 400 L (8503-2974) /uL Christian # (Auto) 200 (0-900) /uL Eos # (Auto) 0 (0-450) /uL Baso # (Auto) 0 (0-100) /uL PT 12.1 (9.4-12.5) SECONDS INR 1.1 (0.9-1.3) APTT 31 (25.1-36.5) SECONDS Sodium 137 (137-145) mmol/L Potassium 5.1 (3.4-5.1) mmol/L Chloride 108 H (98-107) mmol/L Carbon Dioxide 20 L (22-32) mmol/L BUN 44 H (7-17) mg/dL Creatinine 1.70 H (0.52-1.04) mg/dL Estimated GFR 29 L (>60) mL/min BUN/Creatinine Ratio 25.9 H (6-22) Glucose 83 (70-99) mg/dL Calcium 10.5 H (8.4-10.2) mg/dL Magnesium 2.2 (1.6-2.3) mg/dL Total Bilirubin 0.7 (0.2-1.3) mg/dL AST 34 (14-36) IU/L ALT 20 (<35) IU/L Alkaline Phosphatase 63 (38-126) U/L Total Creatine Kinase 56 (30-135) U/L Troponin I 0.015 0.018 (0.01-0.034) ng/mL NT-Pro-B Natriuret Pep 2070 H (<450) pg/mL Total Protein 6.8 (6.3-8.2) g/dL Albumin 4.1 (3.5-5.0) g/dL Globulin 2.7 (1.7-4.1) g/dL Albumin/Globulin Ratio 1.5 (1.0-2.8) Lipase 90 (23-300) U/L Urine Dip Bedside Urine Glucose Negative Bedside Urine Bilirubin - Negative Bedside Urine Ketone - Negative Urine Specific [place] 1.015 Bedside Urine Occult Blood - Negative Bedside Urine pH 6.0 Bedside Urine Protein - Negative Bedside Urine Urobilinogen - Negative Bedside Urine Nitrite - Negative Bedside Urine Leukocytes - Negative Esterase Imaging Data Chest x-ray: Radiologist's Impression: [address] [address] XRay Report Signed Patient: So Mcmillan MR#: [id number] : 1935 Acct:[id number] Age/Sex: 89 / F Date of Service: 09/30/24 Loc: ED Accession Number: [id number] Procedure: XR chest 1V Ordering Provider: Bry Arthur D.O. PROCEDURE: XR CHEST 1V INDICATIONS: Chest Pain TECHNIQUE: One view of the chest was acquired. COMPARISON: None. FINDINGS: Surgical changes and devices: Left chest wall generator with cardiac leads. Lungs and pleura: Moderate pleural effusions and bibasilar atelectasis. Pleural parenchymal band in the left middle lung zone. Mediastinum: Mediastinal contours appear normal. Heart size is normal. Moderate hiatal hernia. Bones and chest wall: No suspicious bony lesions. Overlying soft tissues appear unremarkable. IMPRESSION: Moderate pleural effusions and bibasilar atelectasis. ECG Data Interpretation: Atria Tachy with Afib RBBB HR 108 HI undetermined QRS [address]-t wave change MDM Narrative Medical decision making narrative: Vital signs, nurse triage note, medication list, previous ER visits, and all imaging studies reviewed. BNP 2070 troponin 0.015 and 0.018. Patient given 1 dose of Lopressor here. Case d/w with Real Estate Appraiser ok to for d/c home and f/u pcp and nut cracker next week. Heart score 5. Differential diagnosis STEMI, NSTEMI, CHF, unstable angina, a fib flutter. Chest x-ray showed moderate pleural effusion and bibasilar atelectasis. Discharge Plan Departure Patient Disposition: Home Clinical Impression: Atrial fibrillation Qualifiers: Atrial fibrillation type: paroxysmal Qualified Code(s): I48.0 - Paroxysmal atrial fibrillation Instructions: DI for Atrial Fibrillation Activity Restrictions/Additional Instructions: Return with new or worsening symptoms. Follow up with PCP and or nut cracker next week. Prescriptions: No Action lisinopril 20 MG tablet 20 mg PO QAM Qty: 0 brimonidine-timolol [Combigan] 0.2 %/0.5 % drops 1 drp OPHTH BID Qty: 0 Patient Comments: Pt wants given at 0730 and 1930 sodium,potassium,mag sulfates [Suprep Bowel Prep Kit] 17.5-3.13-1.6 gram recon soln See Rx Instructions PO .COMPLEX Qty: 354 0RF Rx Instructions: Take as directed by Provider diltiazem HCl 180 mg capsule,extended release 24 hr PO alendronate 70 mg tablet 70 mg PO Eliquis 5 mg tablet 5 mg PO BID furosemide 20 mg Tablet 20 mg PO QAM Referrals: Cheyanne Paz ARNP [Primary Care Provider, Nursing] Stand Alone Forms: Patient Portal/API
--- NOTE | 2024-09-30 09:06 | EKG_ITS ---
[address] [address] Test Date: 2024-09-30 Pat Name: So Mcmillan Department: Room: Gender: Female Aesthetician: LEELEE : 1935 Requested By: Order Number: [id number] Reading MD: Heraclio Forte Measurements Intervals [place] Rate: 108 P: ME: QRS: 31 QRSD: 118 T: 42 QT: 342 QTc: 458 Interpretive Statements Undetermined rhythm Low voltage QRS Right bundle branch block Electronically Signed On 10-01-2024 9:45:07 PDT by Heraclio Forte
--- NOTE | 2024-09-30 09:06 | DI.RAD.S_ITS ---
PROCEDURE: XR CHEST 1V INDICATIONS: Chest Pain TECHNIQUE: One view of the chest was acquired. COMPARISON: None. FINDINGS: Surgical changes and devices: Left chest wall generator with cardiac leads. Lungs and pleura: Moderate pleural effusions and bibasilar atelectasis. Pleural parenchymal band in the left middle lung zone. Mediastinum: Mediastinal contours appear normal. Heart size is normal. Moderate hiatal hernia. Bones and chest wall: No suspicious bony lesions. Overlying soft tissues appear unremarkable. IMPRESSION: Moderate pleural effusions and bibasilar atelectasis. Dictated by: Anibal Weiss M.D. on 09/30/2024 at 9:42 Approved by: Anibal Weiss M.D. on 09/30/2024 at 9:42
[2024-09-30 09:15] LABS: INR 1.1 (0.9-1.3); Prothrombin Time 12.1 SECONDS (9.4-12.5)
[2024-09-30 09:18] LABS: PTT Partial Thromboplastin Tim 31 SECONDS (25.1-36.5)
[2024-09-30 09:19] LABS: Alanine Aminotransferase 20 IU/L (<35); Albumin 4.1 g/dL (3.5-5.0); Albumin Globulin Ratio 1.5 (1.0-2.8); Alkaline Phosphatase 63 U/L (38-126); Blood Urea Nitrogen 44 mg/dL (7-17); Calcium 10.5 mg/dL (8.4-10.2); Carbon Dioxide 20 mmol/L (22-32); Chloride 108 mmol/L (98-107); Creatine Kinase 56 U/L (30-135); Estimated Glomerular Filt Rate 29 mL/min (>60); Globulin 2.7 g/dL (1.7-4.1); Glucose 83 mg/dL (70-99); HEMOLYSIS 50 (0-50); Lipase 90 U/L (23-300); Magnesium 2.2 mg/dL (1.6-2.3); Potassium 5.1 mmol/L (3.4-5.1); Sodium 137 mmol/L (137-145); Total Protein 6.8 g/dL (6.3-8.2)
[2024-09-30 09:22] LABS: Add Manual Diff / Slide Review NO; Hematocrit 31.9 % (36-46); Hemoglobin 10.2 g/dL (12.0-16.0); Lymphocytes Absolute Auto 400 /uL (1100-4500); Mean Corpuscular HGB Conc 32.0 % (30-36); Mean Corpuscular Hemoglobin 29.9 PG (26-34); Mean Corpuscular Volume 93.4 fL (80-100); Platelet Count 119 X10^3/uL (150-400)
[2024-09-30 09:30] LABS: NT-proBNP (BNP-Adult 18+) 2070 pg/mL (<450); Troponin I 0.015 ng/mL (0.01-0.034)
[2024-09-30] MEDS: ASPIRIN 81 MG CHEW TAB 324 MG PO (11:34)
[2024-09-30] MEDS: METOPROLOL TARTRATE 5 MG/5 ML INJ IV (11:34)
[2024-09-30 12:31] LABS: Troponin I 0.018 ng/mL (0.01-0.034)
--- NOTE | 2024-09-30 13:02 | PC.NURSE ---
Pt reports she had a bowel prep for colonoscopy and reports when they hooked her up to the monitor and noted her heart rate was fast. pt denies symptoms.
== END 2024-09-30 13:04 | disposition home or self-care (01) ==
PROVIDERS: Emergency Provider Family Medicine; PCP Nurse Practitioner
DX: I48.0 Paroxysmal atrial fibrillation (principal); R07.9 Chest pain, unspecified; Z79.01 Long term (current) use of anticoagulants; Z95.0 Presence of cardiac pacemaker
CPT/HCPCS: 36415; 71045; 80053; 81003; 82550; 83690; 83735; 83880; 84484; 85025; 85610; 85730; 93005; 96374; 99284

== ENCOUNTER 2024-12-15 15:08 | Inpatient (IN) | payer MEDICARE, OTHER, SELFPAY ==
[2017-08-13 07:07] VITALS: BMI 27.4
[2024-12-15] VITALS (15 sets, daily range): BP systolic 110–139; BP diastolic 60–78; PULSE 68–71; RESP 17–24; TEMP 36.2–36.6; O2SAT 90–99; BMI 24.0
--- NOTE | 2024-12-15 15:48 | EKG_ITS ---
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
--- NOTE | 2024-12-15 15:49 | DI.RAD.S_ITS ---
PROCEDURE: XR CHEST 1V INDICATIONS: Shortness of breath TECHNIQUE: One view of the chest was acquired. COMPARISON: [facility], , XR CHEST 1V, 09/30/2024, 9:11. FINDINGS: Surgical changes and devices: Cardiac pacemaker is seen with pulse generator in the left chest. Lungs and pleura: Small to moderate bilateral pleural effusions with bibasilar atelectasis or consolidations. Mediastinum: Cardiac silhouette is enlarged. Bones and chest wall: No suspicious bony lesions. Overlying soft tissues appear unremarkable. IMPRESSION: Cardiomegaly. Small to moderate bilateral pleural effusions with bibasilar atelectasis or consolidations. Approved by: Geovanny Heaton M.D. on 12/15/2024 at 16:03
[2024-12-15 15:58] LABS: Add Manual Diff / Slide Review NO; Hematocrit 30.9 % (36-46); Hemoglobin 9.8 g/dL (12.0-16.0); Lymphocytes Absolute Auto 500 /uL (1100-4500); Mean Corpuscular HGB Conc 31.6 % (30-36); Mean Corpuscular Hemoglobin 28.2 PG (26-34); Mean Corpuscular Volume 89.1 fL (80-100); Platelet Count 107 X10^3/uL (150-400)
--- NOTE | 2024-12-15 16:06 | ED.SOB ---
HPI - SOB/Dyspnea General Chief Complaint: Shortness of Breath/Dyspnea Stated Complaint: fluid build up Time Seen by Provider: 12/15/24 15:54 Source: patient Mode of arrival: Wheelchair History of Present Illness HPI Narrative: Patient here for shortness of breath and fluid build for the past couple of months. No chest pain. Patient has history of chronic kidney disease, atrial fibrillation mitral valve regurgitation pulmonary hypertension monoclonal gammopathy mitral valve stenosis pacemaker aortic stenosis sick sinus syndrome Related Data Home Medications ?Medication ?Instructions ?Recorded ?Confirmed alendronate 70 mg tablet 70 mg PO WEEKLY 09/09/24 12/15/24 apixaban 5 mg tablet (Eliquis) 5 mg PO BID 09/09/24 12/15/24 diltiazem HCl 180 mg capsule,24 180 mg PO DAILY 09/09/24 12/16/24 hr,extended release bimatoprost 0.01 % eye drops 1 drp EYE-BOTH BEDTIME 12/15/24 12/15/24 (Lumigan) brinzolamide 1 %-brimonidine 0.2 % 1 drp EYE-RIGHT 3XD 12/15/24 12/15/24 eye drops,suspension (Simbrinza) lisinopril 10 mg tablet 10 mg PO DAILY 12/15/24 12/15/24 Previous Rx's ?Medication ?Instructions ?Recorded furosemide 40 mg tablet (Lasix) 40 mg PO BID #60 tabs 12/17/24 Allergies Allergy/AdvReac Type Severity Reaction Status Date / Time amoxicillin (AMOXICILLIN) Allergy Intermediate RASH Verified 12/15/24 15:37 clindamycin (CLINDAMYCIN) Allergy Intermediate RASH Verified 12/15/24 15:37 Review of Systems Review of Systems Narrative: GENERAL: Negative chills, fatigue, malaise, fever, sweats. HEENT: Negative sinus pain, ear pain, sore throat RESPIRATORY: Negative dyspnea, cough CARDIOVASCULAR: Negative chest pain, palpitations positive peripheral edema GASTROINTESTINAL: Negative vomiting, nausea, abdominal pain : Negative dysuria, frequency, hematuria MUSCULOSKELETAL: Negative muscle or bony pain SKIN: Negative rash, skin lesions NEUROLOGIC: Negative weakness, numbness ROS Unobtainable: All systems reviewed & are unremarkable except as noted in HPI and below Patient History Medical History Paroxysmal A-fib Hyperuricemia Anemia Chronic kidney disease Nocturia Hyperlipidemia HTN (hypertension) Glaucoma Pacemaker Surgical History History of arthroplasty of left knee Hx of tonsillectomy Hx of parathyroidectomy History of hysterectomy Hx of hernia repair Status post LASIK surgery of both eyes Status post bilateral cataract extraction Social History household members: spouse Smoking Status: Never smoker alcohol intake: current tobacco type: cigarettes alcohol intake frequency: a few times a month Exam Narrative Exam Narrative: GENERAL: in no distress, not toxic not dyspneic HEAD: Normocephalic. EYES: Pupils equal round ENT: Mucous membranes moist. NECK: Trachea midline. CARDIOVASCULAR: Regular rate and rhythm, there is systolic murmur, 3+ pedal edema. 3+ bilateral forearm edema. RESPIRATORY: Breath sounds equal bilaterally. No wheezes, positive rales, negative rhonchi. GASTROINTESTINAL: Abdomen soft, non-tender BACK: No flank tenderness. EXTREMITIES: No gross deformities. NEURO: AOx4. Clear speech SKIN: Warm and dry PSYCH: Not anxious, is cooperative Initial Vital Signs Initial Vital Signs: Vital Signs Pulse Rate 70 12/15/24 15:31 Pulse Oximetry 91 12/15/24 15:31 Course Orders Ordered: Discontinued Medications Acetaminophen (Acetaminophen 325 Mg Tablet) 650 mg PO Q6H PRN PRN Reason: Fever/Mild Pain (1-3) Apixaban (Apixaban 5 Mg Tablet) 5 mg PO BID [facility] Last Admin: 12/17/24 09:25 Dose: 5 mg Documented By: Admin: 12/16/24 20:19 Dose: 5 mg Documented By: Admin: 12/16/24 11:51 Dose: 5 mg Documented By: MYCHAL Diltiazem HCl (Diltiazem Cd 180 Mg Cap) 180 mg PO DAILY [facility] Last Admin: 12/17/24 09:24 Dose: 180 mg Documented By: MILES Furosemide (Furosemide 40 Mg/4 Ml Vial) 20 mg IV NOW ONE Stop: 12/15/24 17:17 Last Admin: 12/15/24 17:25 Dose: 20 mg Documented By: SGF Furosemide (Furosemide 40 Mg/4 Ml Vial) 40 mg IV Q12H [facility] Last Admin: 12/16/24 09:28 Dose: Not Given Documented By: GILDA Furosemide (Furosemide 40 Mg/4 Ml Vial) 40 mg IV Q12H [facility] Last Admin: 12/17/24 06:00 Dose: 40 mg Documented By: Admin: 12/16/24 18:19 Dose: 40 mg Documented By: Admin: 12/16/24 06:07 Dose: 40 mg Documented By: DIONICIO Lisinopril (Lisinopril 10 Mg Tablet) 10 mg PO DAILY [facility] Last Admin: 12/17/24 09:24 Dose: 10 mg Documented By: Admin: 12/16/24 11:51 Dose: 10 mg Documented By: MYCHAL Naloxone HCl (Naloxone 0.4 Mg/Ml Vial) 0.2 mg IV Q2MIN PRN PRN Reason: Opiate Reversal Bimatoprost [Lumigan (] 0.01 % Drops) 1 drop EYE-BOTH BEDTIME [facility] Last Admin: 12/16/24 20:26 Dose: Not Given Documented By: AM Brinzolamide- Brimonidine [ Simbrinza] 1-0.2 % Drops 1 drop EYE-RIGHT TID [facility] Last Admin: 12/17/24 09:25 Dose: Not Given Documented By: Admin: 12/16/24 20:25 Dose: Not Given Documented By: Admin: 12/16/24 17:05 Dose: Not Given Documented By: GILDA Ondansetron HCl (Ondansetron 4 Mg/2 Ml Inj) 4 mg IV Q8HR PRN PRN Reason: Nausea And Vomiting Vital Signs Vital signs: Vital Signs - 8 hr 12/15/24 15:31 12/15/24 15:36 12/15/24 16:00 Temperature 98 F Pulse Rate 70 69 69 Respiratory Rate 18 22 Blood Pressure 110/60 Pulse Oximetry 91 92 91 Oxygen Delivery Method Room Air 12/15/24 16:30 12/15/24 17:00 12/15/24 17:10 Temperature Pulse Rate 69 69 69 Respiratory Rate 23 21 22 Blood Pressure Pulse Oximetry 90 L 91 90 L Oxygen Delivery Method Room Air 12/15/24 17:10 Temperature Pulse Rate Respiratory Rate Blood Pressure 139/68 Pulse Oximetry Oxygen Delivery Method MDM - SOB/Dyspnea Lab Data 12/17/24 06:10 12/17/24 06:10 Labs: Lab Results 12/15/24 12/15/24 12/16/24 Range/Units 15:50 23:59 05:25 WBC 3.9 L 2.5 L (4.5-11.0) X10^3/uL RBC 3.47 L 3.36 L (4.0-5.2) X10^6/uL Hgb 9.8 L 9.4 L (12.0-16.0) g/dL Hct 30.9 L 29.6 L (36-46) % MCV 89.1 88.1 (80-100) fL MCH 28.2 28.0 (26-34) PG MCHC 31.6 31.8 (30-36) % RDW 19.5 H 20.0 H (11.6-14.8) % Plt Count 107 L 92 L (150-400) X10^3/uL Neut % (Auto) 76.0 H 73.2 (50-75) % Lymph % (Auto) 14.0 L 15.0 L (25-40) % [place] % (Auto) 8.2 9.4 (3-14) % Eos % (Auto) 1.0 L 1.7 L (2-4) % Baso % (Auto) 0.8 0.7 (0-2) % Neut # (Auto) 3000 1800 (3353-0867) /uL Lymph # (Auto) 500 L 400 L (7690-0155) /uL [place] # (Auto) 300 200 (0-900) /uL Eos # (Auto) 0 0 (0-450) /uL Baso # (Auto) 0 0 (0-100) /uL PT 21.2 H (9.4-12.5) SECONDS INR 1.9 H (0.9-1.3) Sodium 140 138 (137-145) mmol/L Potassium 4.3 4.1 (3.4-5.1) mmol/L Chloride 105 105 (98-107) mmol/L Carbon Dioxide 27 29 (22-32) mmol/L BUN 46 H 43 H (7-17) mg/dL Creatinine 1.42 H 1.29 H (0.52-1.04) mg/dL Estimated GFR 36 L 40 L (>60) mL/min BUN/Creatinine Ratio 32.4 H 33.3 H (6-22) Glucose 129 H 91 (70-99) mg/dL Lactate 1.4 (0.7-2.1) mmol/L Calcium 10.2 10.3 H (8.4-10.2) mg/dL Magnesium 2.0 (1.6-2.3) mg/dL Total Bilirubin 0.5 (0.2-1.3) mg/dL AST 26 (14-36) IU/L ALT 19 (<35) IU/L Alkaline Phosphatase 55 (38-126) U/L Troponin I 0.014 0.017 0.013 (0.01-0.034) ng/mL NT-Pro-B Natriuret Pep 1770 H (<450) pg/mL Total Protein 6.4 (6.3-8.2) g/dL Albumin 3.8 (3.5-5.0) g/dL Globulin 2.6 (1.7-4.1) g/dL Albumin/Globulin Ratio 1.5 (1.0-2.8) 10/24/25 Range/Units 10:37 WBC (4.5-11.0) X10^3/uL RBC (4.0-5.2) X10^6/uL Hgb (12.0-16.0) g/dL Hct (36-46) % MCV (80-100) fL MCH (26-34) PG MCHC (30-36) % RDW (11.6-14.8) % Plt Count (150-400) X10^3/uL Neut % (Auto) (50-75) % Lymph % (Auto) (25-40) % [place] % (Auto) (3-14) % Eos % (Auto) (2-4) % Baso % (Auto) (0-2) % Neut # (Auto) (5493-1131) /uL Lymph # (Auto) (6051-3226) /uL [place] # (Auto) (0-900) /uL Eos # (Auto) (0-450) /uL Baso # (Auto) (0-100) /uL PT (9.4-12.5) SECONDS INR (0.9-1.3) Sodium (137-145) mmol/L Potassium (3.4-5.1) mmol/L Chloride (98-107) mmol/L Carbon Dioxide (22-32) mmol/L BUN (7-17) mg/dL Creatinine (0.52-1.04) mg/dL Estimated GFR (>60) mL/min BUN/Creatinine Ratio (6-22) Glucose (70-99) mg/dL Lactate (0.7-2.1) mmol/L Calcium (8.4-10.2) mg/dL Magnesium (1.6-2.3) mg/dL Total Bilirubin (0.2-1.3) mg/dL AST (14-36) IU/L ALT (<35) IU/L Alkaline Phosphatase (38-126) U/L Troponin I 0.015 (0.01-0.034) ng/mL NT-Pro-B Natriuret Pep (<450) pg/mL Total Protein (6.3-8.2) g/dL Albumin (3.5-5.0) g/dL Globulin (1.7-4.1) g/dL Albumin/Globulin Ratio (1.0-2.8) Imaging Data Chest x-ray: Radiologist's Impression: [address] [address] XRay Report Signed Patient: So Mcmillan MR#: [id number] : 1935 Acct:[id number] Age/Sex: 89 / F Date of Service: 12/15/24 Loc: ED Accession Number: [id number] Procedure: XR chest 1V Ordering Provider: Armando Gaming MD PROCEDURE: XR CHEST 1V INDICATIONS: Shortness of breath TECHNIQUE: One view of the chest was acquired. COMPARISON: [facility], , XR CHEST 1V, 09/30/2024, 9:11. FINDINGS: Surgical changes and devices: Cardiac pacemaker is seen with pulse generator in the left chest. Lungs and pleura: Small to moderate bilateral pleural effusions with bibasilar atelectasis or consolidations. Mediastinum: Cardiac silhouette is enlarged. Bones and chest wall: No suspicious bony lesions. Overlying soft tissues appear unremarkable. IMPRESSION: Cardiomegaly. Small to moderate bilateral pleural effusions with bibasilar atelectasis or consolidations. Approved by: Geovanny Heaton M.D. on 12/15/2024 at 16:03 MDM Narrative Medical decision making narrative: Patient here for shortness of breath and fluid build for the past couple of months. No chest pain. Patient has history of chronic kidney disease, atrial fibrillation mitral valve regurgitation pulmonary hypertension monoclonal gammopathy mitral valve stenosis pacemaker aortic stenosis sick sinus syndrome MDM After history and exam, EKG CBC CMP troponin BNP chest x-ray Differential considered: Includes but not limited to CHF exacerbation Medical records reviewed: No recent visit here for this complaint Lab Test results independently reviewed as above. Pertinent findings: WBC 3.9 hemoglobin 9.8 hematocrit 30.9 INR 1.9 sodium 140 potassium 4.3 BUN 46 creatinine 1.42 GFR 36 BNP 1770 Independently reviewed EKG ventricular paced rate 70 Imaging studies independently reviewed: Chest x-ray cardiomegaly/pleural effusions Consultations: 6:18 p.m.. I spoke with Dr. Raymundo, cardiology. Patient at this time would likely not benefit for transfer., I spoke with Dr. Forte hospitalist, will admit here. Re-evaluations: I did review with patient and family. She might need to be transferred due to complicated cardiac history. Discussion: Appropriate for admission. Patient will need diuresis. Cardiology service was contacted. Diagnosis: CHF exacerbation Discharge Plan Departure Patient Disposition: Admitted as Observation Clinical Impression: Dyspnea due to congestive heart failure Admit Date/Time: 12/16/24 13:40 Admit Provider: Heraclio Forte
[2024-12-15 16:07] LABS: INR 1.9 (0.9-1.3); Prothrombin Time 21.2 SECONDS (9.4-12.5)
[2024-12-15 16:10] LABS: Lactate (Lactic Acid) 1.4 mmol/L (0.7-2.1)
[2024-12-15 16:11] LABS: Alanine Aminotransferase 19 IU/L (<35); Albumin 3.8 g/dL (3.5-5.0); Albumin Globulin Ratio 1.5 (1.0-2.8); Alkaline Phosphatase 55 U/L (38-126); Blood Urea Nitrogen 46 mg/dL (7-17); Calcium 10.2 mg/dL (8.4-10.2); Carbon Dioxide 27 mmol/L (22-32); Chloride 105 mmol/L (98-107); Estimated Glomerular Filt Rate 36 mL/min (>60); Globulin 2.6 g/dL (1.7-4.1); Glucose 129 mg/dL (70-99); HEMOLYSIS < 15 (0-50); Potassium 4.3 mmol/L (3.4-5.1); Sodium 140 mmol/L (137-145); Total Protein 6.4 g/dL (6.3-8.2)
[2024-12-15 16:23] LABS: NT-proBNP (BNP-Adult 18+) 1770 pg/mL (<450); Troponin I 0.014 ng/mL (0.01-0.034)
[2024-12-15] MEDS: FUROSEMIDE 40 MG/4 ML VIAL 20 MG IV (17:25)
--- NOTE | 2024-12-15 17:39 | PC.NURSE ---
pt able to stand up and pivot to bedside commode with standby assist
--- NOTE | 2024-12-15 18:24 | PC.NURSE ---
This RN gets patient up to bedside commode and patient desatted to 85% once back into bed, this RN placed the patient on 2L NC. Patient appears to be in no acute distress
--- NOTE | 2024-12-15 18:40 | PM.HP.1 ---
History of Present Illness History of Present Illness Date Patient Seen: 12/15/24 Time Patient Seen: 18:40 Chief complaint: fluid build up Narrative: The patient was an 89-year-old female with history of pacemaker and atrial fibrillation is followed by [facility]. She presents with progressive edema of her legs, arms, and dyspnea. In the emergency room she was placed on oxygen and found to have mild fluid overload and given IV diuretics. Her troponin was mildly elevated. She was discussed with Cardiology on-call her recommended a diuresis. Her last echo was in June, she denies of heart failure. She was recently had a bone marrow biopsy for anemia which was fairly unremarkable and started on oral iron. She was waiting for approval for iron infusions. She was in [place], with her of 65 years. She was full resuscitation, her wishes were confirmed tonight. She denies recent chest pain or marked orthopnea. She also denies recent URI symptoms. She has been more short of breath when moving around, especially when getting up to go to the bathroom at night. ROS: All else reviewed and otherwise unremarkable except as noted in the history and physical. PMHx: Pacemaker Atrial fibrillation Mitral stenosis Pulmonary hypertension Iron-deficiency anemia CKD 4 Chronic monoclonal gammopathy Moderate aortic stenosis Gout Osteoporosis Hypertension Chronic splenomegaly Primary hyperparathyroidism SHx: Nonsmoker, lives in [place] with her . Full resuscitation. ED course: Diagnosis of mitral valve stenosis as mentioned. She also has chronic kidney disease and pulmonary hypertension. She was on chronic apixaban. Hemoglobin was 9.8, troponin is 0.014, BNP 1 770. Chest x-ray revealed pulmonary edema and effusions. O: NAD, alert and oriented, fluent speech, calm. Normocephalic skull, EOMI, anicteric sclera, symmetric pupils. Oropharynx unremarkable, no droop. Neck supple, midline trachea, no adenopathy. Lungs clear, normal rate and effort. Diminished breath sounds in the bases. Heart regular, no murmur gallop or rub. Abdomen is soft, non distended and non tender. Extremities are with 2+ edema. Forearms and hands are swollen bilaterally. Skin notable for extensive ecchymoses over both hands and some over lower extremities. She notes that this is from Eliquis. Joints are not swollen or deformed. Judgment appears to be normal. ECG: Ventricular-paced rhythm CXR: Pulmonary edema and pulmonary effusions. A/P: 1. Acute on chronic heart failure, likely diastolic. 2. Acute hypoxic respiratory failure, active. 3. Anasarca, active. 4. Demand ischemia, active. 5. Extensive ecchymosis from anticoagulant, active. Chronic medical problems as noted above. PLAN: -diurese with Lasix 40 IV q.12 hours. -wean oxygen as able. -monitor electrolytes -serial troponins. -consider repeat echo tomorrow after obtaining echo from [facility] from June of 2024. She was full resuscitation Anticipate 1 midnight in the hospital, currently supports observation status. This may change. [facility] Medical History Paroxysmal A-fib Hyperuricemia Anemia Chronic kidney disease Nocturia Hyperlipidemia HTN (hypertension) Glaucoma Pacemaker Surgical History History of arthroplasty of left knee Hx of tonsillectomy Hx of parathyroidectomy History of hysterectomy Hx of hernia repair Status post LASIK surgery of both eyes Status post bilateral cataract extraction Social History household members: spouse alcohol intake: current Meds Home Medications and Allergies Home Medications ?Medication ?Instructions ?Recorded ?Confirmed ?Type brimonidine 0.2 %-timolol 0.5 % 1 drp OPHTH BID ##0 03/17/17 10/28/24 History eye drops (Combigan) lisinopril 20 mg tablet 20 mg PO QAM ##0 03/17/17 12/15/24 History furosemide 20 mg tablet 20 mg PO QAM 07/16/17 12/15/24 History alendronate 70 mg tablet 70 mg PO 09/09/24 10/28/24 History apixaban 5 mg tablet (Eliquis) 5 mg PO BID 09/09/24 12/15/24 History diltiazem HCl 180 mg capsule,24 mg PO 09/09/24 10/28/24 History hr,extended release sodium,potassium,mag sulfates 17.5 See Rx Instructions PO .COMPLEX 09/12/24 10/28/24 Rx gram-3.13 gram-1.6 gram oral soln #354 mL (Suprep Bowel Prep Kit) Allergies Allergy/AdvReac Type Severity Reaction Status Date / Time amoxicillin (AMOXICILLIN) Allergy Intermediate RASH Verified 12/15/24 15:37 clindamycin (CLINDAMYCIN) Allergy Intermediate RASH Verified 12/15/24 15:37 Exam Vital Signs (past 8 hours): - 12/15/24 15:31 12/15/24 15:36 12/15/24 16:00 Temperature 98 F Pulse Rate 70 69 69 Respiratory Rate 18 22 Blood Pressure 110/60 Pulse Oximetry 91 92 91 Oxygen Delivery Method Room Air 12/15/24 16:30 12/15/24 17:00 12/15/24 17:10 Temperature Pulse Rate 69 69 69 Respiratory Rate 23 21 22 Blood Pressure Pulse Oximetry 90 L 91 90 L Oxygen Delivery Method Room Air 12/15/24 17:10 Temperature Pulse Rate Respiratory Rate Blood Pressure 139/68 Pulse Oximetry Oxygen Delivery Method Oxygen Delivery Method Room Air Objective Labs 12/15/24 15:50 12/15/24 15:50 Labs: Laboratory Results - last 24 hr 12/15/24 15:50 WBC 3.9 L RBC 3.47 L Hgb 9.8 L Hct 30.9 L MCV 89.1 MCH 28.2 MCHC 31.6 RDW 19.5 H Plt Count 107 L Neut % (Auto) 76.0 H Lymph % (Auto) 14.0 L [place] % (Auto) 8.2 Eos % (Auto) 1.0 L Baso % (Auto) 0.8 Neut # (Auto) 3000 Lymph # (Auto) 500 L [place] # (Auto) 300 Eos # (Auto) 0 Baso # (Auto) 0 PT 21.2 H INR 1.9 H Sodium 140 Potassium 4.3 Chloride 105 Carbon Dioxide 27 BUN 46 H Creatinine 1.42 H Estimated GFR 36 L BUN/Creatinine Ratio 32.4 H Glucose 129 H Lactate 1.4 Calcium 10.2 Total Bilirubin 0.5 AST 26 ALT 19 Alkaline Phosphatase 55 Troponin I 0.014 NT-Pro-B Natriuret Pep 1770 H Total Protein 6.4 Albumin 3.8 Globulin 2.6 Albumin/Globulin Ratio 1.5 Assessment & Plan Time-Based Coding :: 35 min] spent with patient and on the chart (including review of chart, obtaining history, exam, reviewing outside data, placing orders, documenting exam and treatment plan, and counseling patient) on 12/15. Quality MIPS - Admit I confirm the patient?s Advance Care Plan is present, Code status is documented, Surrogate decision maker is in patient?s record [If Yes, STOP here]: Yes [facility] - Meds 'Current medications' to include all prescriptions, [id number] products, herbals, cannabis/cannabidiol products, and vitamin/mineral/dietary (nutritional) supplements. I have utilized all available resources to obtain, update, or review the patient?s current medications. [If Yes, STOP here]: Yes
[2024-12-16] VITALS (7 sets, daily range): BP systolic 102–136; BP diastolic 51–76; PULSE 66–95; RESP 16–18; TEMP 36.1–36.6; O2SAT 91–97
[2024-12-16 00:40] LABS: Troponin I 0.017 ng/mL (0.01-0.034)
[2024-12-16 05:51] LABS: Add Manual Diff / Slide Review NO; Hematocrit 29.6 % (36-46); Hemoglobin 9.4 g/dL (12.0-16.0); Lymphocytes Absolute Auto 400 /uL (1100-4500); Mean Corpuscular HGB Conc 31.8 % (30-36); Mean Corpuscular Hemoglobin 28.0 PG (26-34); Mean Corpuscular Volume 88.1 fL (80-100); Platelet Count 92 X10^3/uL (150-400)
[2024-12-16] MEDS: FUROSEMIDE 40 MG/4 ML VIAL IV ×2 (06:07→18:19)
[2024-12-16 06:08] LABS: Blood Urea Nitrogen 43 mg/dL (7-17); Calcium 10.3 mg/dL (8.4-10.2); Carbon Dioxide 29 mmol/L (22-32); Chloride 105 mmol/L (98-107); Estimated Glomerular Filt Rate 40 mL/min (>60); Glucose 91 mg/dL (70-99); HEMOLYSIS < 15 (0-50); Magnesium 2.0 mg/dL (1.6-2.3); Potassium 4.1 mmol/L (3.4-5.1); Sodium 138 mmol/L (137-145)
[2024-12-16 06:20] LABS: Troponin I 0.013 ng/mL (0.01-0.034)
--- NOTE | 2024-12-16 08:25 | P.PN_ITS ---
Subjective Subjective Interval history: Summary: The patient was an 89-year-old female with history of pacemaker and atrial fibrillation is followed by [facility]. She presents with progressive edema of her legs, arms, and dyspnea. In the emergency room she was placed on oxygen and found to have mild fluid overload and given IV diuretics. Her troponin was mildly elevated. She was discussed with Cardiology on-call her recommended a diuresis. Her last echo was in June, she denies of heart failure. She was recently had a bone marrow biopsy for anemia which was fairly unremarkable and started on oral iron. She was waiting for approval for iron infusions. She was in [place], with her of 65 years. She was full resuscitation, her wishes were confirmed tonight. She denies recent chest pain or marked orthopnea. She also denies recent URI symptoms. She has been more short of breath when moving around, especially when getting up to go to the bathroom at night. S: She was feeling better today, less dyspnea. Her voice is stronger. Less leg edema as well. She believes she takes Lasix at 20 mg daily at home. Her last echo was at [facility] last July. This is being obtained. O: NAD, alert and oriented. Fluent speech. Lungs are clear, normal rate and effort. Heart is regular, no murmur gallop or rub. Abdomen is soft, non distended. Extremities are with 1+ edema (arms and legs), this is improving.. IMAGING: CXR: Pulmonary edema and pulmonary effusions. A/P: 1. Acute on chronic heart failure, likely diastolic. 2. Acute hypoxic respiratory failure, active. 3. Anasarca, active. 4. Demand ischemia, active. Last troponin was 0.013. She denies chest pain. 5. Extensive ecchymosis from anticoagulant, active. Chronic medical problems: Pacemaker Atrial fibrillation Mitral stenosis Pulmonary hypertension Iron-deficiency anemia CKD 4 Chronic monoclonal gammopathy Moderate aortic stenosis Gout Osteoporosis Hypertension Chronic splenomegaly Primary hyperparathyroidism PLAN: -Continue diurese with Lasix 40 IV q.12 hours. -wean oxygen as able. -monitor electrolytes -serial troponins.\ are stable. -repeat echo today and obtain echo from [facility] from June of 2024. Anticipate discharge to home on December 17. She is full resuscitation Exam Vital Signs (past 8 hours): - 12/16/24 03:47 Temperature 97.8 F Pulse Rate 88 Respiratory Rate 16 Blood Pressure 136/76 Pulse Oximetry 91 Oxygen Flow Rate 0 Oxygen Delivery Method Nasal Cannula Oxygen Flow Rate 0 Objective Labs 12/16/24 05:25 12/16/24 05:25 Labs: Laboratory Results - last 24 hr 12/15/24 12/15/24 12/16/24 15:50 23:59 05:25 WBC 3.9 L 2.5 L RBC 3.47 L 3.36 L Hgb 9.8 L 9.4 L Hct 30.9 L 29.6 L MCV 89.1 88.1 MCH 28.2 28.0 MCHC 31.6 31.8 RDW 19.5 H 20.0 H Plt Count 107 L 92 L Neut % (Auto) 76.0 H 73.2 Lymph % (Auto) 14.0 L 15.0 L [place] % (Auto) 8.2 9.4 Eos % (Auto) 1.0 L 1.7 L Baso % (Auto) 0.8 0.7 Neut # (Auto) 3000 1800 Lymph # (Auto) 500 L 400 L [place] # (Auto) 300 200 Eos # (Auto) 0 0 Baso # (Auto) 0 0 PT 21.2 H INR 1.9 H Sodium 140 138 Potassium 4.3 4.1 Chloride 105 105 Carbon Dioxide 27 29 BUN 46 H 43 H Creatinine 1.42 H 1.29 H Estimated GFR 36 L 40 L BUN/Creatinine Ratio 32.4 H 33.3 H Glucose 129 H 91 Lactate 1.4 Calcium 10.2 10.3 H Magnesium 2.0 Total Bilirubin 0.5 AST 26 ALT 19 Alkaline Phosphatase 55 Troponin I 0.014 0.017 0.013 NT-Pro-B Natriuret Pep 1770 H Total Protein 6.4 Albumin 3.8 Globulin 2.6 Albumin/Globulin Ratio 1.5 PFSH Medical History Paroxysmal A-fib Hyperuricemia Anemia Chronic kidney disease Nocturia Hyperlipidemia HTN (hypertension) Glaucoma Pacemaker Surgical History History of arthroplasty of left knee Hx of tonsillectomy Hx of parathyroidectomy History of hysterectomy Hx of hernia repair Status post LASIK surgery of both eyes Status post bilateral cataract extraction Social History household members: spouse Smoking Status: Never smoker alcohol intake: current Assessment & Plan Time-Based Coding :: [TOTAL MINUTES] spent with patient and on the chart (including review of chart, obtaining history, exam, reviewing outside data, placing orders, documenting exam and treatment plan, and counseling patient) on [DATE].
--- NOTE | 2024-12-16 09:45 | DI.ECHO.S_ITS ---
[facility] : : [address] : [place] : : [id number] : : Phone: [phone] Echocardiogram Report + + :Name: MIGUELITO LOFTON Study Date: 12/16/2024 Height: 65.5 in: :[facility] ReadingLocation: Weight: 148 lb : : Gender: Female BSA: 1.8 m2 : :: 1935 Age: 89 yrs BP: 134/67 mmHg: :Reason For Study: CHF : :Ordering Physician: DANICA, : :REYNA Ortega Performed By: Que Austin : :Referring: REYNA MISHRA : + + Interpretation Summary Suspect underlying A-fib. The patient has a paced rhythm. The left ventricle is normal in size. EF 55 to 60%. The right ventricle is mildly dilated. The right ventricular systolic function is normal. There is a pacemaker lead in the right ventricle. Both atria are severely dilated. The interatrial septum bows toward right atrium consistent with elevated left atrial pressure. There is moderate to severe mitral annular calcification. There is no hemodynamically significant valvular mitral stenosis. MV meanPG 3.57 at a heart rate of 76 BPM. There is moderate to severe mitral regurgitation. The mitral regurgitant jet is eccentrically directed. The aortic valve is trileaflet. The aortic valve is moderately calcified. There is severely reduced leaflet mobility. The peak aortic velocity is 2.6 m/sec. The aortic valve mean gradient is 17 mmHg. The calculated aortic valve area is 0.92 cm2. sev ratio: 0.32 There is moderate to severe aortic stenosis. Low-flow low gradient with a stroke-volume index 24.74 mL/mA???. The tricuspid annulus is dilated. There is moderate tricuspid regurgitation. The right ventricular systolic pressure is estimated to be at least 57 mmHg based on an estimated right atrial pressure of 15 mm Hg. There is a trivial pericardial effusion noted. Large left and small to moderate right pleural effusion. Procedure: A two-dimensional transthoracic echocardiogram with color flow and Doppler was performed. The study quality was technically adequate. There is no prior echocardiogram noted for this patient. The heart rate ranged between 77-93 bpm during the study. The patient has a paced rhythm. Suspect underlying A-fib. Left Ventricle: The left ventricle is normal in size. Left ventricular wall thickness is mildly increased. There is no thrombus. Overall left ventricular systolic function is preserved. Beat to beat variability with arrhythmia. The ejection fraction is estimated to be 55-60%. There are no focal wall motion abnormalities. Diastolic function is indeterminate. Right Ventricle: The right ventricle is mildly dilated. There is a pacemaker lead in the right ventricle. The right ventricular systolic function is normal. Atria: The left atrium is severely dilated. Both atria are severely dilated. The right atrium is severely dilated. There is no Doppler evidence for an interatrial shunt. The interatrial septum bows toward right atrium consistent with elevated left atrial pressure. Mitral Valve: There is moderate to severe mitral annular calcification. There is no hemodynamically significant valvular mitral stenosis. MV meanPG 3.57 at a heart rate of 76 BPM. There is moderate to severe mitral regurgitation. The mitral regurgitant jet is eccentrically directed. Aortic Valve: The aortic valve is trileaflet. The aortic valve is moderately calcified. There is severely reduced leaflet mobility. The calculated aortic valve area is 0.92 cm2. The peak aortic velocity is 2.6 m/sec. The aortic valve mean gradient is 17 mmHg. sev ratio: 0.32. There is moderate to severe aortic stenosis. There is trace aortic regurgitation. Tricuspid Valve: The tricuspid annulus is dilated. There is moderate tricuspid regurgitation. The right ventricular systolic pressure is estimated to be at least 57 mmHg based on an estimated right atrial pressure of 15 mm Hg. Pulmonic Valve: The pulmonic valve is not well seen, but is grossly normal. There is mild pulmonic regurgitation. Great Vessels: The aortic root is normal size. The ascending aorta is normal in size. The aortic arch could not be visualized. The pulmonary artery is normal size. The IVC is dilated (diameter is greater than 2.1 cm) and it collapses less than 50% with a sniff. This suggests a high right atrial pressure of 15 mm Hg. Pericardium/ Pleura There is a trivial pericardial effusion noted. Large left and small to moderate right pleural effusion. MMode/2D Measurements & Calculations LVIDd: 4.5 cm LVOT diam: 2.0 cm LVIDs: 3.2 cm Ao root diam: 3.0 cm FS: 29.3 % asc Aorta Diam: 2.9 cm IVSd: 1.1 cm LVPWd: 0.99 cm LV silvestre. diameter/BSA (cm/m^2): 2.6 LV sys. diameter/BSA (cm/m^2): 1.8 LA A2 area: 26.0 cm2 RA long axis: 6.5 cm LA A4 area: 28.2 cm2 RA area: 24.2 cm2 LA length (vol): 7.0 cm RA vol: 76.5 ml LA vol: 89.3 ml RA : 43.6 ml/m2 LA vol index: 50.9 ml/m2 IVC diam: 2.3 cm RVD1 (basal): 4.3 cm RVD2 (mid): 3.6 cm TAPSE: 2.0 cm Doppler Measurements & Calculations Ao V2 max: 262.5 cm/sec LVOT Max Darren: 80.3 cm/sec Ao V2 mean: 196.4 cm/sec LV V1 max P.6 mmHg Ao max P.6 mmHg LV V1 VTI: 14.5 cm Ao mean P.0 mmHg SHRUTHI(I,D): 0.96 cm2 Ao V2 VTI: 45.2 cm SHRUTHI(V,D): 0.92 cm2 sev ratio: 0.32 SHRUTHI indexed to BSA (cm^2/m^2): 0.55 MV E max darren: 149.1 cm/sec TR max darren: 325.2 cm/sec MV dec time: 0.22 sec TR max P.3 mmHg MVA(VTI): 1.4 cm2 PA V2 max: 110.6 cm/sec PA V2 mean: 81.7 cm/sec PA mean P.0 mmHg PA pr(Accel): 36.6 mmHg MV V2 mean: 86.0 cm/sec SV(LVOT): 43.6 ml MV mean P.6 mmHg MV V2 VTI: 31.7 cm Qp/Qs (V,Ao): 1.0/4.4 Qp/Qs (V,LVOT): 1.8/1.0 Reading Physician:12:47 PM
[2024-12-16] MEDS: APIXABAN 5 MG TABLET PO ×2 (11:51→20:19)
[2024-12-16 13:41] LABS: Troponin I 0.015 ng/mL (0.01-0.034)
--- NOTE | 2024-12-16 14:26 | CM.DANOTE ---
Initial DCP Assessment Note. Review EMR and PT Interview. Met with patient, spouse, and sonBenjy, at bedside to discuss discharge needs.PT is alert x 4 sitting up in bed. No acute distress. Independent with 3 wheel walker. Payor:??ALEXIA, for Life PCP: Summary & Plan:?89 y/o female arrived to the ED c/o SOB. Admitted OBS. Dx. CHF Exacerbation. PMH: A.Fib, Pacemaker, and Aortic Stenosis. Plan: Wean Oxygen and Diurese. CORIN 12/17 Discharge Planning/Care Management Advanced directive, confirm from FAMILY Start: 12/15/24 22:53 Freq: Q24H Status: Active Protocol: Document 12/16/24 12:55 KL (Rec: 12/16/24 12:56 KL [id number]) Advance Directive, confirm on record Time 12:56 Person contacted patient Copy received No CM Discharge Assessment Start: 12/15/24 20:43 Freq: Status: Active Protocol: Document 12/16/24 14:20 SM (Rec: 12/16/24 14:26 SM [id number]) Discharge Planning Assessment Assigned Discharge Martine Maynard RN CM [employer] Provider Dr. Paz, Cheyanne Insurance Medicare Advance Directives? Yes: health care directive Advance Directives No on File History Provided By Patient,Medical Record Prior Living House Arrangements Household Members spouse Type of Drives own vehicle transporation used prior to admit Independent with ADL Yes 's Is patient alert and Yes oriented? 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 Arrangement Referrals Initiated None needed Review Status In Process Please Provide Date 12/16/24 Initial DC Assessment Was Performed Next Review Type Continued Stay Review
[2024-12-17] VITALS: BP 96/59; PULSE 74; RESP 18; TEMP 36; O2SAT 94
[2024-12-17 04:00] VITALS: BP 118/69; PULSE 74; RESP 18; TEMP 36.2; O2SAT 93
[2024-12-17] MEDS: FUROSEMIDE 40 MG/4 ML VIAL IV (06:00)
[2024-12-17 06:54] LABS: Add Manual Diff / Slide Review NO; Hematocrit 32.5 % (36-46); Hemoglobin 10.3 g/dL (12.0-16.0); Lymphocytes Absolute Auto 500 /uL (1100-4500); Mean Corpuscular HGB Conc 31.6 % (30-36); Mean Corpuscular Hemoglobin 27.8 PG (26-34); Mean Corpuscular Volume 87.9 fL (80-100); Platelet Count 96 X10^3/uL (150-400)
[2024-12-17 07:03] LABS: Blood Urea Nitrogen 41 mg/dL (7-17); Calcium 10.1 mg/dL (8.4-10.2); Carbon Dioxide 32 mmol/L (22-32); Chloride 100 mmol/L (98-107); Estimated Glomerular Filt Rate 39 mL/min (>60); Glucose 83 mg/dL (70-99); HEMOLYSIS < 15 (0-50); Magnesium 2.0 mg/dL (1.6-2.3); Potassium 4.0 mmol/L (3.4-5.1); Sodium 138 mmol/L (137-145)
--- NOTE | 2024-12-17 07:26 | PM.PN.1 ---
Subjective Subjective Date Patient Seen: 12/17/24 Interval history: The patient was an 89-year-old female with history of pacemaker and atrial fibrillation is followed by [facility]. She presents with progressive edema of her legs, arms, and dyspnea. In the emergency room she was placed on oxygen and found to have mild fluid overload and given IV diuretics. Her troponin was mildly elevated. She was discussed with Cardiology on-call her recommended a diuresis. Her last echo was in June, she denies of heart failure. She was recently had a bone marrow biopsy for anemia which was fairly unremarkable and started on oral iron. She was waiting for approval for iron infusions. She was in [place], with her of 65 years. She was full resuscitation, her wishes were confirmed tonight. She denies recent chest pain or marked orthopnea. She also denies recent URI symptoms. She has been more short of breath when moving around, especially when getting up to go to the bathroom at night. S: She was feeling better today, less dyspnea. Her voice is stronger. Less leg edema as well. She believes she takes Lasix at 20 mg daily at home. Her last echo was at [facility] last July. This is being obtained. O: NAD, alert and oriented. Fluent speech. Lungs are clear, normal rate and effort. Heart is regular, no murmur gallop or rub. Abdomen is soft, non distended. Extremities are with 1+ edema (arms and legs), this is improving.. IMAGING: CXR: Pulmonary edema and pulmonary effusions. A/P: 1. Acute on chronic heart failure, likely diastolic. 2. Acute hypoxic respiratory failure, active. 3. Anasarca, active. 4. Demand ischemia, active. Last troponin was 0.013. She denies chest pain. 5. Extensive ecchymosis from anticoagulant, active. Chronic medical problems: Pacemaker Atrial fibrillation Mitral stenosis Pulmonary hypertension Iron-deficiency anemia CKD 4 Chronic monoclonal gammopathy Moderate aortic stenosis Gout Osteoporosis Hypertension Chronic splenomegaly Primary hyperparathyroidism PLAN: -Continue diurese with Lasix 40 IV q.12 hours. -wean oxygen as able. -monitor electrolytes -serial troponins.\ are stable. -repeat echo today and obtain echo from [facility] from June of 2024. Anticipate discharge to home on December 17. She is full resuscitation Exam Vital Signs (past 8 hours): - 12/17/24 00:00 12/17/24 04:00 Temperature 96.8 F L 97.1 F L Pulse Rate 74 74 Respiratory Rate 18 18 Blood Pressure 96/59 L 118/69 Pulse Oximetry 94 93 Oxygen Flow Rate 1 2 Oxygen Delivery Method Nasal Cannula Oxygen Flow Rate 2 Objective Labs 12/17/24 06:10 12/17/24 06:10 Labs: Laboratory Results - last 24 hr 12/16/24 12/17/24 10:37 06:10 WBC 2.9 L RBC 3.69 L Hgb 10.3 L Hct 32.5 L MCV 87.9 MCH 27.8 MCHC 31.6 RDW 19.7 H Plt Count 96 L Neut % (Auto) 70.2 Lymph % (Auto) 17.2 L [place] % (Auto) 10.0 Eos % (Auto) 1.8 L Baso % (Auto) 0.8 Neut # (Auto) 2100 Lymph # (Auto) 500 L [place] # (Auto) 300 Eos # (Auto) 100 Baso # (Auto) 0 Sodium 138 Potassium 4.0 Chloride 100 Carbon Dioxide 32 BUN 41 H Creatinine 1.31 H Estimated GFR 39 L BUN/Creatinine Ratio 31.3 H Glucose 83 Calcium 10.1 Magnesium 2.0 Troponin I 0.015 PFSH Medical History Paroxysmal A-fib Hyperuricemia Anemia Chronic kidney disease Nocturia Hyperlipidemia HTN (hypertension) Glaucoma Pacemaker Surgical History History of arthroplasty of left knee Hx of tonsillectomy Hx of parathyroidectomy History of hysterectomy Hx of hernia repair Status post LASIK surgery of both eyes Status post bilateral cataract extraction Social History household members: spouse Smoking Status: Never smoker alcohol intake: current Assessment & Plan Time-Based Coding :: [TOTAL MINUTES] spent with patient and on the chart (including review of chart, obtaining history, exam, reviewing outside data, placing orders, documenting exam and treatment plan, and counseling patient) on [DATE].
[2024-12-17 07:57] VITALS: O2SAT 97
[2024-12-17 08:00] VITALS: BP 111/69; PULSE 82; RESP 19; TEMP 36.2; O2SAT 94; O2SAT 96
[2024-12-17] MEDS: APIXABAN 5 MG TABLET PO (09:25)
[2024-12-17 11:44] VITALS: BP 90/58
[2024-12-17 12:15] VITALS: BP 94/48; PULSE 85; RESP 18; TEMP 36.6; O2SAT 92
--- NOTE | 2024-12-17 13:44 | PC.NURSE ---
Discharge instructions given and understood. PIV and telemetry removed. Pt discharged with pt's family via private vehicle.
--- NOTE | 2024-12-17 14:50 | PM.DS.1 ---
History of Present Illness History of Present Illness Date Patient Seen: 12/17/24 Chief complaint: fluid build up Discharge Providers Provider Date of admission: 12/16/24 13:40 Discharge Date: 12/17/24 Primary care physician: DARON Quesada Discharge provider: Norman Mccartney MD Summary Hospital Course Hospital Course: The patient was an 89-year-old female with history of pacemaker and atrial fibrillation is followed by [facility]. She presents with progressive edema of her legs, arms, and dyspnea. In the emergency room she was placed on oxygen and found to have mild fluid overload and given IV diuretics. Her troponin was mildly elevated. She was discussed with Cardiology on-call her recommended a diuresis. Her last echo was in June, she denies of heart failure. She was recently had a bone marrow biopsy for anemia which was fairly unremarkable and started on oral iron. She was waiting for approval for iron infusions. She was in [place], with her of 65 years. She was full resuscitation, her wishes were confirmed tonight. She denies recent chest pain or marked orthopnea. She also denies recent URI symptoms. She has been more short of breath when moving around, especially when getting up to go to the bathroom at night. 12/16: She was feeling better today, less dyspnea. Her voice is stronger. Less leg edema as well. She believes she takes Lasix at 20 mg daily at home. Her last echo was at [facility] last July. This is being obtained. 12/17: Echocardiogram shows severe mitral regurgitation and severe aortic stenosis with an EF of 55-60%. She follows her pacemaker with Dr. Retana in Cardiology. She has bilateral pleural effusions. She appears to be diuresing well and will need a higher dose of Lasix when she goes home today. She says that she is feeling much better. The creatinine is 1.31. The platelets are stable at 96. The hemoglobin is 10.3. The white blood count is stable at 2.9. She agrees to follow up the potential for TAVR with Cardiology soon. O: NAD, alert and oriented. Fluent speech. Lungs are clear, normal rate and effort. Heart is regular rate and rhythm with a 1-2/6 systolic murmur Abdomen is soft, non distended. Extremities are with trace edema (arms and legs), this is improving.. IMAGING: CXR: Pulmonary edema and pulmonary effusions. A/P: 1. Acute on chronic heart failure, likely diastolic. 2. Acute hypoxic respiratory failure, active. 3. Anasarca, active. 4. Demand ischemia, active. Last troponin was 0.013. She denies chest pain. 5. Extensive ecchymosis from anticoagulant, active. 6. Severe aortic stenosis and severe mitral regurgitation Chronic medical problems: Pacemaker Atrial fibrillation Mitral stenosis Pulmonary hypertension Iron-deficiency anemia CKD 4 Chronic monoclonal gammopathy Moderate aortic stenosis Gout Osteoporosis Hypertension Chronic splenomegaly Primary hyperparathyroidism PLAN: -discharge home with increased Lasix at 40 mg b.i.d.. Will need very soon follow up with PCP/Cardiology for electrolyte monitoring and consideration of treatment. -wean off oxygen successfully -monitor electrolytes at home -continue apixaban, diltiazem and lisinopril Status at Discharge Cognitive/behavioral status at discharge: at baseline, oriented Functional status at discharge: independent ambulation Overall status at discharge: patient is progressing back to baseline Time Spent with Patient Time spent: Greater than 30 minutes Exam Vital Signs (past 8 hours): - 12/17/24 07:00 12/17/24 07:57 12/17/24 08:00 Temperature 97.1 F L Pulse Rate 82 Respiratory Rate 19 Blood Pressure 111/69 Pulse Oximetry 97 94 Oxygen Delivery Method Nasal Cannula Nasal Cannula Oxygen Flow Rate 2 2 12/17/24 08:00 12/17/24 11:44 12/17/24 12:15 Temperature 97.9 F Pulse Rate 85 Respiratory Rate 18 Blood Pressure 90/58 L 94/48 L Pulse Oximetry 96 92 Oxygen Delivery Method Nasal Cannula Oxygen Flow Rate Oxygen Delivery Method Nasal Cannula Oxygen Flow Rate 2 Objective Labs 12/17/24 06:10 12/17/24 06:10 Labs: Laboratory Results - last 24 hr 12/17/24 06:10 WBC 2.9 L RBC 3.69 L Hgb 10.3 L Hct 32.5 L MCV 87.9 MCH 27.8 MCHC 31.6 RDW 19.7 H Plt Count 96 L Neut % (Auto) 70.2 Lymph % (Auto) 17.2 L [place] % (Auto) 10.0 Eos % (Auto) 1.8 L Baso % (Auto) 0.8 Neut # (Auto) 2100 Lymph # (Auto) 500 L [place] # (Auto) 300 Eos # (Auto) 100 Baso # (Auto) 0 Sodium 138 Potassium 4.0 Chloride 100 Carbon Dioxide 32 BUN 41 H Creatinine 1.31 H Estimated GFR 39 L BUN/Creatinine Ratio 31.3 H Glucose 83 Calcium 10.1 Magnesium 2.0 PFSH Medical History Paroxysmal A-fib Hyperuricemia Anemia Chronic kidney disease Nocturia Hyperlipidemia HTN (hypertension) Glaucoma Pacemaker Surgical History History of arthroplasty of left knee Hx of tonsillectomy Hx of parathyroidectomy History of hysterectomy Hx of hernia repair Status post LASIK surgery of both eyes Status post bilateral cataract extraction Social History household members: spouse Smoking Status: Never smoker alcohol intake: current Discharge Plan Discharge Plan Patient Disposition: Home Provider Discharge Comment: Follow up with DARON Paz in one week. Discharge orders & Medications Prescriptions: New furosemide [Lasix] 40 mg tablet 40 mg PO BID Qty: 60 0RF Continued diltiazem HCl 180 mg capsule,extended release 24 hr 180 mg PO DAILY alendronate 70 mg tablet 70 mg PO WEEKLY Patient Comments: pt took on Saturdays Rx Instructions: 70 mg orally; Eliquis 5 mg tablet 5 mg PO BID lisinopril 10 mg tablet 10 mg PO DAILY Lumigan 0.01 % drops 1 drp EYE-BOTH BEDTIME Simbrinza 1-0.2 % drops,suspension 1 drp EYE-RIGHT 3XD Discontinued lisinopril 20 MG tablet 20 mg PO QAM Qty: 0 furosemide 20 mg Tablet 20 mg PO QAM cephalexin 500 mg capsule 500 mg PO 3XD Follow up/Referrals: Cheyanne Paz ARNP [Primary Care Provider, Nursing] Diet/Activity/Treatments Diet: Regular Visit Report/Discharge Packet Stand Alone Forms: Patient Portal/API, Stroke Signs & Symptoms Discharge Data Primary Care Provider: Cheyanne Paz
== END 2024-12-17 13:30 | disposition home or self-care (01) | DRG 291 ==
LOC: ED 18:19 → AC 18:21 → ED 19:19 → AC 19:21
PROVIDERS: Admitting Provider Hospitalist; Emergency Provider Emergency Medicine; PCP Nurse Practitioner; Referring Provider Emergency Medicine; Visit Provider Hospitalist
DX: I13.0 Hypertensive heart and chronic kidney disease with heart failure and stage 1 through stage 4 chronic kidney disease, or unspecified chronic kidney disease (principal); I50.33 Acute on chronic diastolic (congestive) heart failure; J96.01 Acute respiratory failure with hypoxia; I24.89 Other forms of acute ischemic heart disease; N18.4 Chronic kidney disease, stage 4 (severe); I27.20 Pulmonary hypertension, unspecified; I48.91 Unspecified atrial fibrillation; R23.3 Spontaneous ecchymoses; D47.2 Monoclonal gammopathy; I35.0 Nonrheumatic aortic (valve) stenosis; I34.0 Nonrheumatic mitral (valve) insufficiency; D50.9 Iron deficiency anemia, unspecified; M81.0 Age-related osteoporosis without current pathological fracture; Z95.0 Presence of cardiac pacemaker; Z79.01 Long term (current) use of anticoagulants
CPT/HCPCS: 36415; 71045; 80048; 80053; 83605; 83735; 83880; 84484; 85025; 85610; 93005; 93010; 93306; 94760; 96374; 99284; 99285; G0378; J1938